=== PATIENT | male | born 1955 | race Caucasian/White ===

== ENCOUNTER 2017-08-05 01:43 | Inpatient (IN) | payer MEDICAID, OTHER ==
[~2017-08-05] VITALS: Ht 185.4 cm; Wt 104.3 kg
[2017-08-05] MEDS ORDERED: HYDROmorphone PF 1 MG/ML DISP.SYRIN IV/SQ PRN (01:45)
[2017-08-05] MEDS ORDERED: 0.9 % SODIUM CHLORIDE 10 ML DISP.SYRIN. IV PRN (01:45)
--- NOTE | 2017-08-05 01:55 | PHYS DOC ---
Past History Past Medical History: Dementia, Diabetes, Hypertension Alcohol Use: None Drug Use: None Adult General Chief Complaint Chief Complaint: penile injury, altered mental status [facility] HPI Patient is a 61-year-old male with a known history of dementia and diabetes who according to the custodial staff was increasing altered and refusing his medications. Patient claims he was sent here because he was complaining of penile pain after he sustained an injury to the head of his penis. He said that the nursing staff would not believe him that his penis was hurting and refused to help get him off the ground when he fell. He has been falling off the bed on multiple occasions. According to staff it is a self-inflicted injury that he keeps falling off the bed to the ground. In an attempt to prevent any bodily harm they're fairly dispensed from the room and placed several mattresses on the floor. Patient does not remember how he sustained an injury to the tip of his penis. He says he is having difficulty urinating, there is considerable pain with range of motion of his legs over the penis and when anything touches the penis. He denies any fevers, chills. The custodial staff let that he has been refusing his medications although he denies that claim. Patient again does not remember how he sustained injury to his penis he does have self-inflicted excoriations on his upper back and shoulders that are not bleeding but are scabbed. Patient sustained multiple bruises on his lower legs bilaterally from repeated falls. Patient denies any sexually transmitted diseases but is having some difficulty urinating with urgency frequency and pain with urination as it exits the penis. Pain is severe patient is reluctant to have anybody examine his penis secondary to 10 out of 10 pain Review of Systems Review of Systems Constitutional: Denies fever or chills [] Eyes: Denies change in visual acuity, redness, or eye pain [] HENT: Denies nasal congestion or sore throat [] Respiratory: Denies cough or shortness of breath [] Cardiovascular: No additional information not addressed in HPI [] GI: Denies abdominal pain, nausea, vomiting, bloody stools or diarrhea [] : Positive for dysuria and pain when urinating since the penis around the glans. Musculoskeletal: Denies back pain or joint pain positive for penile pain[] Integument: Positive for itchy skin rash on his shoulders and upper back. Neurologic: Denies headache, focal weakness or sensory changes [] Endocrine: Denies polyuria or polydipsia [] All other systems were reviewed and found to be within normal limits, except as documented in this note. Physical Exam Physical Exam Other vital signs recorded on a chart at this time patient mildly tachycardic and hypertensive likely secondary to pain Constitutional: Patient is obese somewhat agitated and perseverating on his penile pain. He claims that he does not remember how he injured himself or if anybody else did this to him. HENT: Normocephalic, atraumatic, bilateral external ears normal, oropharynx dry erythema, no oral exudates, nose normal. [] Eyes: PERRLA, EOMI, conjunctiva normal, no discharge. [] Neck: Normal range of motion, no tenderness, supple, no stridor. [] Cardiovascular:Heart rate regular rhythm, no murmur [] Lungs & Thorax: Bilateral breath sounds clear to auscultation [] Abdomen: Bowel sounds normal, soft, no tenderness, no masses, no pulsatile masses. [] Skin: Warm, dry, multiple abrasions on his upper shoulders and back bilaterally with excoriation fernandez from self-inflicted abrasions. Patient has a large contusion and abrasions to the lateral right hip. Patient also has contusions to the penile tip and the glans of the penis with some area of erythema and concerning areas of purulent discharge that may represent early cellulitis there is no active drainage from the penis tip. There is no scrotal edema or soft tissue swelling there is no evidence of erythema or crepitus of the scrotum. There is no abdominal wall pain or erythema Back: Not able to assess as patient is not willing to rollover secondary to pain in his penis. Extremities: Patient has significant abrasions and contusions to the hips bilaterally with some self-inflicted excoriations, there is no obvious deformity. She has brisk capillary refill plus peripheral pulses in the dorsalis pedis bilaterally Neurologic: Alert and oriented X 3, patient moves all limbs spontaneously patient is really noncompliant with instructions Psychologic: Patient seems appropriately oriented and lucid Current Patient Data Lab Results Laboratory Tests Test 08/05/17 01:56 White Blood Count 10.9 x10^3/uL (4.0-11.0) Red Blood Count 4.25 x10^6/uL (4.30-5.70) L Hemoglobin 12.3 g/dL (13.0-17.5) L Hematocrit 36.9 % (39.0-53.0) L Mean Corpuscular Volume 87 fL (79-100) Mean Corpuscular Hemoglobin 29 pg (25-35) Mean Corpuscular Hemoglobin Concent 33 g/dL (31-37) Red Cell Distribution Width 13.0 % (11.5-14.5) Platelet Count 246 x10^3/uL (140-400) Neutrophils (%) (Auto) 76 % (31-73) H Lymphocytes (%) (Auto) 10 % (24-48) L Monocytes (%) (Auto) 11 % (0-9) H Eosinophils (%) (Auto) 3 % (0-3) Basophils (%) (Auto) 1 % (0-3) Neutrophils # (Auto) 8.3 x10^3uL (1.8-7.7) H Lymphocytes # (Auto) 1.0 x10^3/uL (1.0-4.8) Monocytes # (Auto) 1.2 x10^3/uL (0.0-1.1) H Eosinophils # (Auto) 0.3 x10^3/uL (0.0-0.7) Basophils # (Auto) 0.1 x10^3/uL (0.0-0.2) Sodium Level 143 mmol/L (136-145) Potassium Level 4.1 mmol/L (3.5-5.1) Chloride Level 103 mmol/L (98-107) Carbon Dioxide Level 28 mmol/L (21-32) Anion Gap 12 (6-14) Blood Urea Nitrogen 46 mg/dL (8-26) H Creatinine 3.6 mg/dL (0.7-1.3) H Estimated GFR (Cockcroft-Gault) 17.4 Glucose Level 225 mg/dL (70-99) H Lactic Acid Level 3.3 mmol/L (0.4-2.0) H Calcium Level 11.4 mg/dL (8.5-10.1) H Total Bilirubin 0.5 mg/dL (0.2-1.0) Direct Bilirubin 0.1 mg/dL (0.0-0.2) Aspartate Amino Transferase (AST) 15 U/L (15-37) Alanine Aminotransferase (ALT) 18 U/L (16-63) Alkaline Phosphatase 99 U/L (46-116) Creatine Kinase 170 U/L (39-308) Creatine Kinase MB (Mass) 6.4 ng/mL (0.0-3.6) H Creatine Kinase MB Relative Index 3.8 % (0-4) Total Protein 7.9 g/dL (6.4-8.2) Albumin 3.3 g/dL (3.4-5.0) L EKG EKG [] Radiology/Procedures Radiology/Procedures [] Course & Med Decision Making Course & Med Decision Making Pertinent Labs and Imaging studies reviewed. (See chart for details) []Patient's penile tissue looks irritated, bruised and cellulitic at the glans. Patient was very reluctant to have any examination done at the penis at all secondary to pain. There is no lesions on the shaft of the penis or the scrotum. There is tenderness just along the glans with soft tissue swelling, erythema and possible purulent discharge subcutaneously under the tissues. Patient denies any self-inflicted trauma although he does not room of the mechanism he further denies that anybody did this to him as well. Will not let us place a Darby to help facilitate urine output. In the interim I will provide him pain medications and antianxiety medication to help facilitate examination and placement of a Darby. I'm concerned that this patient may have suffered from non-external trauma to his penis with the custodial staff may have attempted to place a Darby in him. There is circumferential circular contusions to the glans of the penis and soft tissue swelling that the patient cannot remember how he sustained the injury. Impression CBC is unremarkable with the exception of some neutrophil predominance which is concerning patient is still not void secondary to the soft tissue swelling of the glans of the penis. Given the extensive soft tissue swelling secondary to the trauma I will not attempt to place a Darby at this time. Patient has voided in the last 12 hours we will just fluid hydrate him and encouraged him to avoid. At this point I will treat his glans issue as a cellulitis given his history of diabetes there is no evidence of Marce's gangrene of the scrotum watch him very carefully for developing cellulitis of the groin. Patient's issues only isolated to the glans of the penis with a soft tissue trauma. But given his history of diabetes we will give him antibiotics watch him very closely with serial lactic acid level CBCs. At this point patient is no scrotal tenderness the tenderness is mildly on the shaft of the penis and the glans of the penis. There is minimal erythema but he will have repeat wound checks and immediately transported to [facility] necessary at this point I believe he is safe to stay here for IV antibiotics and repeat wound checks. She is resting comfortably with IV fluids and pain meds at this point. Patient's lactic acid is 3.3 he'll be given a 30 mL /mg bolus Calculus his weight at 220 pounds based on 6 foot 2 is ideal body weight which turns out to be 100 kg, this will equal proximally 30 mL were program equal 3 L. He's been given 1 L here in the emergency department and 2 additional liters been ordered within the first 6 hours of arrival. Patient given vancomycin and Zosyn to treat his penile cellulitis. Senior Editor note: Jolly Denson Senior Editor called at of the service 3:10 AM Consult called back at 3:10 AM Discussed the case I presented and they agreed with admission. Time of acceptance 3:10 AM Dragon Disclaimer Dragon Disclaimer This electronic medical record was generated, in whole or in part, using a voice recognition dictation system. Departure Departure: Impression: Primary Impression: Penile cellulitis Additional Impressions: Contusion of penis, initial encounter Hyperglycemia Elevated lactic acid level Disposition: ADMITTED INPATIENT Admitting Physician: Nakia Denson Condition: STABLE Referrals: PCP,NO (PCP) Problem Qualifiers STACY PETER MD Aug 05, 2017 01:55
[2017-08-05 02:17] LABS: BASO # 0.1 x10^3/uL (0.0-0.2); BASO % 1 % (0-3); EOS # 0.3 x10^3/uL (0.0-0.7); EOS % 3 % (0-3); HEMATOCRIT 36.9 % (39.0-53.0); HEMOGLOBIN 12.3 g/dL (13.0-17.5); LYMPH % 10 % (24-48); MEAN CORPUSCULAR HEMOGLOBIN 29 pg (25-35); MEAN CORPUSCULAR HGB CONC 33 g/dL (31-37); MEAN CORPUSCULAR VOLUME 87 fL (79-100); MONO # 1.2 x10^3/uL (0.0-1.1); MONO % 11 % (0-9); NEUT # 8.3 x10^3uL (1.8-7.7); NEUT % 76 % (31-73); PLATELET COUNT 246 x10^3/uL (140-400); RED BLOOD COUNT 4.25 x10^6/uL (4.30-5.70); WHITE BLOOD COUNT 10.9 x10^3/uL (4.0-11.0)
[2017-08-05] MEDS ORDERED: ONDANSETRON PF 4 MG/2 ML VIAL. IV ONE (02:30)
[2017-08-05] MEDS ORDERED: IV NORMAL SALINE 1,000ML 1,000 ML IV SCH (02:30)
[2017-08-05] MEDS ORDERED: LORazepam 2 MG/ML VIAL IV ONE (02:30)
[2017-08-05 02:40] LABS: ALBUMIN 3.3 g/dL (3.4-5.0); CALCIUM 11.4 mg/dL (8.5-10.1); CREATININE 3.6 mg/dL (0.7-1.3); DIRECT BILIRUBIN 0.1 mg/dL (0.0-0.2); GFR 17.4; POTASSIUM 4.1 mmol/L (3.5-5.1); TOTAL BILIRUBIN 0.5 mg/dL (0.2-1.0); TOTAL PROTEIN 7.9 g/dL (6.4-8.2)
[2017-08-05] MEDS ORDERED: HYDROmorphone PF 1 MG/ML DISP.SYRIN IV PRN (03:15)
[2017-08-05] MEDS ORDERED: ONDANSETRON PF 4 MG/2 ML VIAL. IV PRN (03:15)
[2017-08-05] MEDS ORDERED: VANCOMYCIN 1 GM in IV NORMAL SALINE 250ML 250 ML IV ONE (03:15)
[2017-08-05] MEDS: IV NORMAL SALINE 1,000ML 1,000 ML IV SCH ×4 (03:25→07:30)
[2017-08-05] MEDS ORDERED: PIPERACILLIN/TAZOBACTAM 4.5 GM in IV NORMAL SALINE 50ML 50 ML IV ONE (03:30)
[2017-08-05] MEDS ORDERED: VANCOMYCIN 2 GM in IV NORMAL SALINE 500ML 500 ML IV ONE (03:30)
[2017-08-05] MEDS ORDERED: IV NORMAL SALINE 50ML 50 ML ONE (04:23)
[2017-08-05] MEDS ORDERED: IV NORMAL SALINE 500ML 500 ML ONE (04:24)
[2017-08-05] MEDS ORDERED: PIPERACILLIN/TAZOBACTAM 4.5 GM VIAL IV ONE (04:24)
[2017-08-05] MEDS ORDERED: VANCOMYCIN 1 GM VIAL. ONE (04:24)
[2017-08-05 05:42] VITALS: BP 185/91
[2017-08-05] MEDS ORDERED: ATOR20TA58 PO (06:30)
[2017-08-05] MEDS ORDERED: LORA-434 PO (06:30)
[2017-08-05] MEDS ORDERED: CYAN100072 PO (06:31)
[2017-08-05] MEDS ORDERED: CLON0.1T PO (06:32)
[2017-08-05] MEDS ORDERED: BISA10SU2 RC ×2 (06:32→10:53)
[2017-08-05] MEDS ORDERED: BISA5TAB4 PO (06:32)
[2017-08-05] MEDS ORDERED: DOCU-109 PO (06:33)
[2017-08-05] MEDS ORDERED: VALS320T2 PO (06:33)
[2017-08-05] MEDS ORDERED: NA P133E2 RC (06:34)
[2017-08-05] MEDS ORDERED: ALEN70TA3 PO (06:34)
[2017-08-05] MEDS ORDERED: IBUP800T19 PO (06:35)
[2017-08-05] MEDS ORDERED: INSU100I13 SQ (06:36)
[2017-08-05] MEDS ORDERED: LEVO25TA4 PO (06:36)
[2017-08-05] MEDS ORDERED: DRON5CAP2 PO (06:37)
[2017-08-05] MEDS ORDERED: GABA-587 PO (06:38)
[2017-08-05] MEDS ORDERED: GABA800T2 PO (06:38)
[2017-08-05] MEDS ORDERED: INSU100I17 SQ ×2 (06:39→10:53)
[2017-08-05] MEDS ORDERED: CINA60TA PO (06:41)
[2017-08-05] MEDS ORDERED: CHOL2000 PO (06:41)
[2017-08-05] MEDS ORDERED: ONDA4TAB10 SL (06:42)
[2017-08-05] MEDS ORDERED: ONDA4TAB7 PO (10:53)
[2017-08-05 11:57] VITALS: BP 207/108
[2017-08-05] MEDS ORDERED: BISACODYL 10 MG SUPP.RECT RC PRN (12:00)
[2017-08-05] MEDS ORDERED: VANCOMYCIN PER PHARMACY MC PRN (12:00)
[2017-08-05] MEDS ORDERED: LORazepam 1 MG TABLET PO PRN (12:00)
[2017-08-05] MEDS ORDERED: BISACODYL TAB 5 MG TABLET.DR. PO PRN (12:00)
[2017-08-05] MEDS ORDERED: PIPERACILLIN/TAZOBACTAM 4.5 GM in IV NORMAL SALINE 50ML 50 ML IV SCH (12:00)
[2017-08-05] MEDS ORDERED: ONDANSETRON ODT 4 MG TAB.RAPDIS PO PRN ×2 (12:00→13:45)
[2017-08-05] MEDS ORDERED: PIPERACILLIN/TAZOBACTAM 2.25 GM in IV NORMAL SALINE 50ML 50 ML IV SCH (12:15)
[2017-08-05] MEDS ORDERED: CHOLECALCIFEROL (VITAMIN D3) 1,000 UNIT TABLET PO SCH (12:15)
[2017-08-05] MEDS ORDERED: cloNIDine HCL 0.1 MG TABLET PO SCH (12:15)
[2017-08-05] MEDS ORDERED: CYANOCOBALAMIN (VITAMIN B-12) 1,000 MCG TABLET. PO SCH (12:15)
[2017-08-05] MEDS ORDERED: LOSARTAN 50 MG TABLET. PO SCH (12:15)
[2017-08-05] MEDS ORDERED: DOCUSATE SODIUM 100 MG CAPSULE PO SCH (12:15)
[2017-08-05] MEDS ORDERED: ONDANSETRON ODT 4 MG TAB.RAPDIS PO SCH (12:30)
[2017-08-05] MEDS ORDERED: GABAPENTIN 400 MG CAPSULE. PO SCH (13:00)
[2017-08-05] MEDS ORDERED: DEXTROSE 50% 25 GM / 50ML DISP.SYRIN. IV PRN (13:15)
--- NOTE | 2017-08-05 14:26 | PDOC3 ---
Discharge Summary Visit Information Date of Admission: Aug 05, 2017 Date of Discharge: Aug 05, 2017 Final Diagnosis Problems Medical Problems: (1) Contusion of penis, initial encounter Status: Acute (2) Elevated lactic acid level Status: Acute (3) Hyperglycemia Status: Acute (4) Penile cellulitis Status: Als ALS TOBACCO USE DISORDER HISTORY OF METH USE IMPAIRED MOBILITY Problems: Brief Hospital Course Allergies Allergies Coded Allergies Type Severity Reaction Last Updated Verified No Known Drug Allergies 08/05/17 No Vital Signs Vital Signs Date Time Temp Pulse Resp B/P (MAP) Pulse Ox O2 Delivery O2 Flow Rate FiO2 08/05/17 13:52 100 207/108 08/05/17 11:57 98.0 20 96 Room Air 08/05/17 08:00 2.0 Lab Results Laboratory Tests Test 08/05/17 01:56 08/05/17 05:25 08/05/17 07:43 08/05/17 11:42 White Blood Count 10.9 x10^3/uL (4.0-11.0) Red Blood Count 4.25 x10^6/uL (4.30-5.70) Hemoglobin 12.3 g/dL (13.0-17.5) Hematocrit 36.9 % (39.0-53.0) Mean Corpuscular Volume 87 fL (79-100) Mean Corpuscular Hemoglobin 29 pg (25-35) Mean Corpuscular Hemoglobin Concent 33 g/dL (31-37) Red Cell Distribution Width 13.0 % (11.5-14.5) Platelet Count 246 x10^3/uL (140-400) Neutrophils (%) (Auto) 76 % (31-73) Lymphocytes (%) (Auto) 10 % (24-48) Monocytes (%) (Auto) 11 % (0-9) Eosinophils (%) (Auto) 3 % (0-3) Basophils (%) (Auto) 1 % (0-3) Neutrophils # (Auto) 8.3 x10^3uL (1.8-7.7) Lymphocytes # (Auto) 1.0 x10^3/uL (1.0-4.8) Monocytes # (Auto) 1.2 x10^3/uL (0.0-1.1) Eosinophils # (Auto) 0.3 x10^3/uL (0.0-0.7) Basophils # (Auto) 0.1 x10^3/uL (0.0-0.2) Sodium Level 143 mmol/L (136-145) Potassium Level 4.1 mmol/L (3.5-5.1) Chloride Level 103 mmol/L (98-107) Carbon Dioxide Level 28 mmol/L (21-32) Anion Gap 12 (6-14) Blood Urea Nitrogen 46 mg/dL (8-26) Creatinine 3.6 mg/dL (0.7-1.3) Estimated GFR (Cockcroft-Gault) 17.4 Glucose Level 225 mg/dL (70-99) Lactic Acid Level 3.3 mmol/L (0.4-2.0) 1.8 mmol/L (0.4-2.0) Calcium Level 11.4 mg/dL (8.5-10.1) Total Bilirubin 0.5 mg/dL (0.2-1.0) Direct Bilirubin 0.1 mg/dL (0.0-0.2) Aspartate Amino Transf (AST/SGOT) 15 U/L (15-37) Alanine Aminotransferase (ALT/SGPT) 18 U/L (16-63) Alkaline Phosphatase 99 U/L (46-116) Creatine Kinase 170 U/L (39-308) Creatine Kinase MB (Mass) 6.4 ng/mL (0.0-3.6) Creatine Kinase MB Relative Index 3.8 % (0-4) Total Protein 7.9 g/dL (6.4-8.2) Albumin 3.3 g/dL (3.4-5.0) Glucose (Fingerstick) 149 mg/dL (70-99) 177 mg/dL (70-99) Brief Hospital Course Mr. Molina is a 61 old [sex] who presented with [ ] Past History Past Medical History: Dementia, Diabetes, Hypertension Alcohol Use: None Drug Use: None Adult General Chief Complaint Chief Complaint: penile injury, altered mental status HPI HPI Patient is a 61-year-old male with a known history of dementia and diabetes who according to the half-way staff was increasing altered and refusing his medications. Patient claims he was sent here because he was complaining of penile pain after he sustained an injury to the head of his penis. He said that the nursing staff would not believe him that his penis was hurting and refused to help get him off the ground when he fell. He has been falling off the bed on multiple occasions. According to staff it is a self-inflicted injury that he keeps falling off the bed to the ground. In an attempt to prevent any bodily harm they're fairly dispensed from the room and placed several mattresses on the floor. Patient does not remember how he sustained an injury to the tip of his penis. He says he is having difficulty urinating, there is considerable pain with range of motion of his legs over the penis and when anything touches the penis. He denies any fevers, chills. The half-way staff let that he has been refusing his medications although he denies that claim. Patient again does not remember how he sustained injury to his penis he does have self-inflicted excoriations on his upper back and shoulders that are not bleeding but are scabbed. Patient sustained multiple bruises on his lower legs bilaterally from repeated falls. Patient denies any sexually transmitted diseases but is having some difficulty urinating with urgency frequency and pain with urination as it exits the penis. Pain is severe patient is reluctant to have anybody examine his penis secondary to 10 out of 10 pain Was admitted for cellulitis of the penis. POOR HISTORIAN, DOES NOT KNOW THE EXACT AMOUNT OF TIME THAT HIS PENIS HAS BEEN BOTHERING HIM. SOCIAL HISTORY: [place] [facility] [place] WAS [facility] AT THE [facility] FOR METHAMPHETAMINE PRIOR TO THAT. STILL IS ON PROBATION. SMOKES BUT IS NOT ALLOWED TO DRINK PER HIS PROBATION Review of Systems Review of Systems Constitutional: Denies fever or chills [] Eyes: Denies change in visual acuity, redness, or eye pain [] HENT: Denies nasal congestion or sore throat [] Respiratory: Denies cough or shortness of breath [] Cardiovascular: No additional information not addressed in HPI [] GI: Denies abdominal pain, nausea, vomiting, bloody stools or diarrhea [] : Positive for dysuria and pain when urinating since the penis around the glans., pain and swelling around the penis. denies having sex for the last 10 years Musculoskeletal: Denies back pain or joint pain positive for penile pain[] Integument: Positive for itchy skin rash on his shoulders and upper back. Neurologic: Denies headache, focal weakness or sensory changes [] Endocrine: Denies polyuria or polydipsia [] All other systems were reviewed and found to be within normal limits, except as documented in this note. Physical Exam Physical Exam Other vital signs recorded on a chart at this time patient mildly tachycardic and hypertensive likely secondary to pain Constitutional: Patient is obese somewhat agitated and perseverating on his penile pain. He claims that he does not remember how he injured himself or if anybody else did this to him. HENT: Normocephalic, atraumatic, bilateral external ears normal, oropharynx dry erythema, no oral exudates, nose normal. [, edentulous Eyes: PERRLA, EOMI, conjunctiva normal, no discharge. [] Neck: Normal range of motion, Cardiovascular:Heart rate regular rhythm, no murmur [] Lungs & Thorax: Bilateral breath sounds clear to auscultation [] Abdomen: Bowel sounds normal, soft, no tenderness, no masses, no pulsatile masses. [] Skin: Warm, dry, multiple abrasions on his upper shoulders and back bilaterally with excoriation fernandez from self-inflicted abrasions. Patient has a large contusion and abrasions to the lateral right hip. Patient also has contusions to the penile tip and the glans of the penis with some area of erythema and concerning areas of purulent discharge that may represent early cellulitis there is no active drainage from the penis tip. There is no scrotal edema or soft tissue swelling there is no evidence of erythema or crepitus of the scrotum. There is no abdominal wall pain or erythema Multiple tatoos with nazi swastickers present Back: Not able to assess as patient is not willing to rollover secondary to pain in his penis. Extremities: Patient has significant abrasions and contusions to the hips bilaterally with some self-inflicted excoriations, there is no obvious deformity. She has brisk capillary refill plus peripheral pulses in the dorsalis pedis bilaterally, bilateral hamild hand contractures Neurologic: Alert and oriented X 3, patient moves all limbs spontaneously patient is really noncompliant with instructions Psychologic: Patient very agitated and prone to swearing, lying naked and denied my request to cover himself Discharge Information Condition at Discharge: Comment (IN NEED OF A UROLOGIST) Disposition/Orders: D/C to Another Facility Dischare Medications Current Medications Lorazepam (Ativan) 1 mg 1X ONCE IV Last administered on 08/05/17at 02:23; Start 08/05/17 at 02:30; Stop 08/05/17 at 02:31; Status DC Hydromorphone HCl (Dilaudid) 1 mg PRN Q15MIN PRN IV/SQ PAIN GREATER THAN 3/10 Last administered on 08/05/17at 02:24; Start 08/05/17 at 01:45; Stop 08/06/17 at 01:44 Sodium Chloride 1,000 ml @ 1,000 mls/hr Q1H IV Last administered on 08/05/17at 02:23; Start 08/05/17 at 02:30; Stop 08/05/17 at 03:29; Status DC Sodium Chloride (Normal Saline Flush) 10 ml QSHIFT PRN IV AFTER MEDS AND BLOOD DRAWS; Start 08/05/17 at 01:45 Ondansetron HCl (Zofran) 4 mg 1X ONCE IV Last administered on 08/05/17at 02:23 ; Start 08/05/17 at 02:30; Stop 08/05/17 at 02:31; Status DC Piperacillin Sod/ Tazobactam Sod 4.5 gm/Sodium Chloride 50 ml @ 100 mls/hr 1X ONCE IV Last administered on 08/05/17at 04:19; Start 08/05/17 at 03:30; Stop at 03:59; Status DC Vancomycin HCl 1 gm/Sodium Chloride 250 ml @ 250 mls/hr 1X ONCE IV ; Start at 03:15; Stop 08/05/17 at 04:14; Status UNV Vancomycin HCl 2 gm/Sodium Chloride 500 ml @ 250 mls/hr 1X ONCE IV Last administered on 08/05/17at 03:30; Start 08/05/17 at 03:30; Stop 08/05/17 at 05:29 ; Status DC Ondansetron HCl (Zofran) 4 mg PRN Q4HRS PRN IV NAUSEA/VOMITING; Start 08/05/17 at 03:15; Stop 08/06/17 at 03:14 Fentanyl Citrate (Fentanyl 2ml Vial) 50 mcg PRN Q2HR PRN IV SEVERE PAIN; Start 08/05/17 at 03:15; Stop 08/06/17 at 03:14 Sodium Chloride 1,000 ml @ 125 mls/hr Q8H IV Last administered on 08/05/17at 07 :30; Start 08/05/17 at 03:05; Stop 08/06/17 at 03:04 Hydromorphone HCl (Dilaudid) 1 mg PRN Q2HR PRN IV SEVERE PAIN; Start 08/05/17 at 03:15; Stop 08/06/17 at 03:14 Sodium Chloride 1,000 ml @ 1,000 mls/hr Q1H IV Last administered on 08/05/17at 06:12; Start 08/05/17 at 03:15; Stop 08/05/17 at 05:38; Status DC Sodium Chloride 50 ml @ As Directed STK-MED ONCE .ROUTE ; Start 08/05/17 at 04: 23; Stop 08/05/17 at 04:24; Status DC Sodium Chloride 500 ml @ As Directed STK-MED ONCE .ROUTE ; Start 08/05/17 at 04 :24; Stop 08/05/17 at 04:25; Status DC Vancomycin HCl (Vancomycin) 1 gm STK-MED ONCE .ROUTE ; Start 08/05/17 at 04:24; Stop 08/05/17 at 04:25; Status DC Piperacillin Sod/ Tazobactam Sod (Zosyn) 4.5 gm STK-MED ONCE IV ; Start at 04:24; Stop 08/05/17 at 04:25; Status DC Atorvastatin Calcium (Lipitor) 20 mg HS PO ; Start 08/05/17 at 21:00 Bisacodyl (Dulcolax Tab) 5 mg PRN DAILY PRN PO CONSTIPATION; Start 08/05/17 at 12:00 Bisacodyl (Dulcolax Supp) 10 mg PRN DAILY PRN RC CONSTIPATION; Start 08/05/17 at 12:00 Bisacodyl (Dulcolax Supp) 10 mg QMWF RC ; Start 08/05/17 at 16:00 Clonidine HCl (Catapres) 0.1 mg BID PO Last administered on 08/05/17at 13:52; Start 08/05/17 at 12:15 Cyanocobalamin (Vitamin B-12) 1,000 mcg DAILY PO Last administered on at 13:51; Start 08/05/17 at 12:15 Docusate Sodium (Colace) 200 mg DAILY PO Last administered on 08/05/17at 13:52; Start 08/05/17 at 12:15 Gabapentin (Neurontin) 400 mg QID PO Last administered on 08/05/17at 13:51; Start 08/05/17 at 13:00 Ibuprofen (Motrin) 800 mg BID PO ; Start 08/05/17 at 21:00 Insulin Aspart (NovoLOG) 1 units BIDBFRMEAL SQ ; Start 08/05/17 at 16:30; Stop 08/05/17 at 16:30; Status DC Insulin Aspart (NovoLOG) 5 units TIDAC SQ ; Start 08/05/17 at 16:30 Insulin Glargine (Lantus) 4 units BID SQ ; Start 08/05/17 at 21:00 Levothyroxine Sodium (Synthroid) 25 mcg DAILY06 PO ; Start 08/06/17 at 06:00 Lorazepam (Ativan) 1 mg PRN Q4HRS PRN PO ANXIETY / AGITATION; Start 08/05/17 at 12:00 Ondansetron HCl (Zofran Odt) 4 mg PRN Q8HRS PRN PO NAUSEA/VOMITING; Start 08/05 at 12:00; Stop 08/05/17 at 13:45; Status DC Non-Formulary Medication 1 tab QM PO ; Start 08/05/17 at 16:00; Stop 08/05/17 at 16:00; Status DC Vitamin D (Vitamin D3) 1,000 unit DAILY PO Last administered on 08/05/17at 13:51 ; Start 08/05/17 at 12:15 Cinacalcet (Sensipar) 60 mg BID PO ; Start 08/05/17 at 21:00 Dronabinol (Marinol) 5 mg BID PO ; Start 08/05/17 at 21:00 Ondansetron HCl (Zofran Odt) 4 mg Q6HRS PO ; Start 08/05/17 at 12:30; Stop 08/05 at 13:38; Status DC Non-Formulary Medication 1 tab DAILY PO ; Start 08/06/17 at 09:00; Stop at 09:00; Status DC Piperacillin Sod/ Tazobactam Sod 4.5 gm/Sodium Chloride 50 ml @ 100 mls/hr Q6HRS IV ; Start 08/05/17 at 12:00; Stop 08/05/17 at 12:05; Status DC Vancomycin HCl (Vanco Per Pharmacy) 1 each PRN DAILY PRN MC SEE COMMENTS Last administered on 08/05/17at 12:25; Start 08/05/17 at 12:00 Piperacillin Sod/ Tazobactam Sod 2.25 gm/Sodium Chloride 50 ml @ 100 mls/hr Q6HRS IV Last administered on 08/05/17at 13:53; Start 08/05/17 at 12:15 Losartan Potassium (Cozaar) 100 mg DAILY PO Last administered on 08/05/17at 13: 52; Start 08/05/17 at 12:15 Vancomycin HCl 1.5 gm/Sodium Chloride 500 ml @ 250 mls/hr Q24H IV ; Start 08/06 at 03:00 Vancomycin HCl (Vancomycin Trough Level) 1 each 1X ONCE MC ; Start 08/07/17 at 02:30; Stop 08/07/17 at 02:31 Lactobacillus Rhamnosus (Culturelle) 1 cap BID PO ; Start 08/05/17 at 21:00 Insulin Aspart (NovoLOG) BIDBFRMEAL SQ ; Start 08/05/17 at 16:30 Dextrose 12.5 gm PRN Q15MIN PRN IV SEE COMMENTS; Start 08/05/17 at 13:15 Ondansetron HCl (Zofran Odt) 4 mg PRN Q6HRS PRN PO NAUSEA; Start 08/05/17 at 13 :45 Active Scripts Active Reported Zofran (Ondansetron Hcl) 4 Mg Tablet 1 Tab PO Q6HRS Novolog Flexpen (Insulin Aspart) 100 Unit/1 Ml Insuln.pen 1 Unit SQ BIDBFRMEAL Bisacodyl 10 Mg Supp.rect 10 Mg RC PRN DAILY PRN Zofran Odt (Ondansetron) 4 Mg Tab.rapdis 1 Tab SL Q8HRS PRN Vitamin D (Cholecalciferol (Vitamin D3)) 2,000 Unit Capsule 1 Cap PO DAILY Sensipar (Cinacalcet Hcl) 60 Mg Tablet 60 Mg PO BID Novolog Flexpen (Insulin Aspart) 100 Unit/1 Ml Insuln.pen 5 Unit SQ TIDAC Neurontin (Gabapentin) 400 Mg Capsule 400 Mg PO QID Dronabinol 5 Mg Capsule 5 Mg PO BID Levothyroxine Sodium 25 Mcg Tablet 1 Tab PO DAILY06 Lantus Solostar (Insulin Glargine,Hum.rec.anlog) 100 Unit/1 Ml Insuln.pen 4 Unit SQ BID Ibuprofen 800 Mg Tablet 1 Tab PO BID Fosamax (Alendronate Sodium) 70 Mg Tablet 1 Tab PO QM Fleet Enema (Na Phos,M-B/Na Phos,Di-Ba) 133 Ml Enema 1 Each RC DAILY PRN Diovan (Valsartan) 320 Mg Tablet 1 Tab PO DAILY Colace (Docusate Sodium) 100 Mg Capsule 200 Mg PO DAILY Clonidine Hcl 0.1 Mg Tablet 0.1 Mg PO BID Bisacodyl 10 Mg Supp.rect 10 Mg RC QMWF Bisacodyl 5 Mg Tablet.dr 5 Mg PO PRN DAILY PRN B-12 (Cyanocobalamin (Vitamin B-12)) 1,000 Mcg Tablet 1,000 Mcg PO DAILY Atorvastatin Calcium 20 Mg Tablet 1 Tab PO HS Ativan (Lorazepam) 1 Mg Tablet 1 Mg PO Q4HRS PRN Patient Instructions Patient Instuctions DISCHARGE TO [facility]. NIA CASTELLON DO Aug 05, 2017 14:26
[2017-08-05 14:55] VITALS: BP 174/91
[2017-08-05] MEDS ORDERED: BISACODYL 10 MG SUPP.RECT RC SCH (16:00)
[2017-08-05] MEDS ORDERED: NON FORMULARY ITEM (Alendronate Sodium (Fosamax) 1 TAB) PO SCH (16:00)
[2017-08-05] MEDS ORDERED: INSULIN ASPART 300 UNITS/3 ML INSULN.PEN SQ SCH ×3 (16:30)
[2017-08-05] MEDS ORDERED: ATORVASTATIN CALCIUM 20 MG TABLET PO SCH (21:00)
[2017-08-05] MEDS ORDERED: CINACALCET HCL 30 MG TABLET PO SCH (21:00)
[2017-08-05] MEDS ORDERED: INSULIN GLARGINE 300 UNITS/3 ML INSULN.PEN. SQ SCH (21:00)
[2017-08-05] MEDS ORDERED: DRONABINOL 2.5 MG CAPSULE PO SCH (21:00)
[2017-08-05] MEDS ORDERED: IBUPROFEN 800 MG TABLET. PO SCH (21:00)
[2017-08-05] MEDS ORDERED: LACTOBACILLUS RHAMNOSUS GG 1 CAPSULE. PO SCH (21:00)
[2017-08-06] MEDS ORDERED: VANCOMYCIN 1.5 GM in IV NORMAL SALINE 500ML 500 ML IV SCH (03:00)
[2017-08-06] MEDS ORDERED: LEVOTHYROXINE 25 MCG TABLET. PO SCH (06:00)
[2017-08-06] MEDS ORDERED: NON FORMULARY ITEM (Valsartan (Diovan) 1 TAB) PO SCH (09:00)
== END 2017-08-05 15:20 | disposition home or self-care (01) | DRG 728 ==
LOC: ER 01:43 → 1 SOUTH 04:05
PROVIDERS: ADMIT Internal Medicine; ATTEND Internal Medicine
DX: N48.22 Cellulitis of corpus cavernosum and penis (principal); E11.65 Type 2 diabetes mellitus with hyperglycemia; F03.90 Unspecified dementia, unspecified severity, without behavioral disturbance, psychotic disturbance, mood disturbance, and anxiety; S30.21XA Contusion of penis, initial encounter; W06.XXXA Fall from bed, initial encounter; E66.9 Obesity, unspecified; I10 Essential (primary) hypertension; R29.6 Repeated falls; S80.12XA Contusion of left lower leg, initial encounter; S80.11XA Contusion of right lower leg, initial encounter; R39.15 Urgency of urination; F15.90 Other stimulant use, unspecified, uncomplicated; M24.542 Contracture, left hand; M24.541 Contracture, right hand; F41.9 Anxiety disorder, unspecified; Z79.4 Long term (current) use of insulin; Z79.899 Other long term (current) drug therapy; Z72.0 Tobacco use; Z91.19 Patient's noncompliance with other medical treatment and regimen; Y93.89 Activity, other specified; Y92.89 Other specified places as the place of occurrence of the external cause; Y99.8 Other external cause status; Z68.30 Body mass index [BMI] 30.0-30.9, adult
CPT/HCPCS: 36415; 80048; 80076; 82553; 82947; 83605; 85025; 87040; 87641; 96361; 96365; 96375; J1170; J1815; J2060; J2405; J2543; J3370; J7040; 99285-25; J7030

== ENCOUNTER 2017-12-04 19:53 | Observation (INO) | payer OTHER ==
[~2017-12-04] VITALS: Ht 188 cm; Wt 99.9 kg
[~2017-12-04 19:53] MED LIST: ALEN70TA3 PO; ATOR20TA58 PO; BISA10SU2 RC; BISA5TAB4 PO; CHOL2000 PO; CINA60TA PO; CLON0.1T PO; CYAN100072 PO; DOCU-109 PO; DRON5CAP2 PO; GABA-587 PO; GABA800T2 PO; IBUP800T19 PO; INSU100I13 SQ; INSU100I17 SQ; LEVO25TA4 PO; LORA-254 PO; NA P133E2 RC; ONDA4TAB10 SL; ONDA4TAB7 PO; VALS320T2 PO
--- NOTE | 2017-12-04 20:04 | ED.ADGEN ---
Past History Past Medical History: Anxiety, Dementia, Depression, Diabetes, Hypertension, UTI, Other Past Surgical History: Other Smoking: Cigarettes Alcohol Use: None Drug Use: None Adult General Chief Complaint Chief Complaint ".. I don't need any of this shit...I just want to go home to [place]... ."'. Instead they send me to the [facility] psych arriola...." " Fuck ..I am going to soon any from my [facility] ALS..." HPI HPI Patient is a 62 year old male who presents with hx of mental status change, pt. also refusing care, assaultive, uncooperative in his care and verbal abusing staff. Pt refusing meds, will not re-direct, general disruptive behavior the last three weeks.. Pt. has hx. of major depressive disorder, poor impulse control, anti social disorder, oppositional defiance disorder, HTN, muscle wasting, DM, Dysthymic, dysphagia, ALS and hx of urinary retention with over flow incontinence. Pt. is a transfer from [facility]- where he has been a resident since 02/15/2017. Pt. follows with Dr. Santillan. Pt. has been accepted to [facility] Dr. Chapman. Pt. sent to ED for medical clearance prior to placement on [facility]. Review of Systems Review of Systems Pt. poor historian- very angry.- Give limited review of symptoms Family History Family History Not currently available Current Medications Current Medications See nursing for snf medications Allergies Allergies Allergies Coded Allergies Type Severity Reaction Last Updated Verified No Known Drug Allergies 08/05/17 No Physical Exam Physical Exam Constitutional:In acute emotional distress, angry, non-toxic appearance. [] HENT: Normocephalic, atraumatic, bilateral external ears normal, oropharynx moist, no oral exudates, nose normal. [] Eyes: PERRLA, EOMI, conjunctiva normal, no discharge. [] Neck: Normal range of motion, no tenderness, supple, no stridor. [] Cardiovascular: Tachycardia Heart rate regular rhythm, no murmur []PIM to the left Lungs & Thorax: Bilateral breath sounds equal at apex with scattered wheezes and basilar crackles on auscultation [] Abdomen: Bowel sounds normal, soft, no tenderness, distended, no masses, no pulsatile masses. [] Suprapubic scar from recent suprapubic catheter- port is scarred shut Skin: Warm, dry, no erythema, no rash. Poor turgor Back: No tenderness, no CVA tenderness. [] Sacral erythema. Extremities: Generalized muscle tenderness, no cyanosis, no clubbing, ROM limited because of generalized muscle wasting and neuromuscular weakness, ankle edema. [] Arthritic changes. Neurologic: Alert and oriented X 3, decreased generalize muscular strength.. decrease plantar sensation, , no gross focal deficits from his baseline per pt. Pt. needs assistance in turning or even sitting up. Psychologic: Affect angry, judgement normal, mood depressed. Current Patient Data Vital Signs Vital Signs Date Time Temp Pulse Resp B/P (MAP) Pulse Ox O2 Delivery O2 Flow Rate FiO2 12/04/17 20:21 98.0 94 18 94 Room Air Lab Results Laboratory Tests Test 12/04/17 20:16 White Blood Count 7.8 x10^3/uL (4.0-11.0) Red Blood Count 3.85 x10^6/uL (4.30-5.70) L Hemoglobin 10.6 g/dL (13.0-17.5) L Hematocrit 32.3 % (39.0-53.0) L Mean Corpuscular Volume 84 fL (79-100) Mean Corpuscular Hemoglobin 28 pg (25-35) Mean Corpuscular Hemoglobin Concent 33 g/dL (31-37) Red Cell Distribution Width 14.7 % (11.5-14.5) H Platelet Count 296 x10^3/uL (140-400) Neutrophils (%) (Auto) 55 % (31-73) Lymphocytes (%) (Auto) 24 % (24-48) Monocytes (%) (Auto) 12 % (0-9) H Eosinophils (%) (Auto) 8 % (0-3) H Basophils (%) (Auto) 1 % (0-3) Neutrophils # (Auto) 4.3 x10^3uL (1.8-7.7) Lymphocytes # (Auto) 1.9 x10^3/uL (1.0-4.8) Monocytes # (Auto) 0.9 x10^3/uL (0.0-1.1) Eosinophils # (Auto) 0.6 x10^3/uL (0.0-0.7) Basophils # (Auto) 0.1 x10^3/uL (0.0-0.2) Erythrocyte Sedimentation Rate 57 (0-15) H Prothrombin Time 10.4 SEC (9.4-11.4) Prothrombin Time INR 1.0 (0.9-1.1) PTT 23 SEC (23-33) Sodium Level 137 mmol/L (136-145) Potassium Level 3.5 mmol/L (3.5-5.1) Chloride Level 100 mmol/L (98-107) Carbon Dioxide Level 21 mmol/L (21-32) Anion Gap 16 (6-14) H Blood Urea Nitrogen 72 mg/dL (8-26) H Creatinine 4.1 mg/dL (0.7-1.3) H Estimated GFR (Cockcroft-Gault) 14.9 Glucose Level 234 mg/dL (70-99) H Calcium Level 11.4 mg/dL (8.5-10.1) H Magnesium Level 2.0 mg/dL (1.8-2.4) Creatine Kinase 113 U/L (39-308) Creatine Kinase MB (Mass) 5.7 ng/mL (0.0-3.6) H Creatine Kinase MB Relative Index 5.0 % (0-4) H Troponin I Quantitative < 0.017 ng/mL (0-0.055) [id number]-Type Natriuretic Peptide 136 pg/mL (0-124) H EKG EKG My interpretation of EKG shows a sinus rhythm at 91 bpm. There is left axis deviation. There is fascicular block. No findings acute STEMI with contralateral changes.[] Radiology/Procedures Radiology/Procedures My interpretation of chest x-ray shows COPD changes. Does have scattered granulomas. There is a cluster granulomas in right lower lung soni. Degenerative joint changes. Cardiomegaly. [] My interpretation CT of head shows no shift, mass, edema, bleed, or fracture. Does have findings of small vessel changes and atrophy. No acute fx , djd. Course & Med Decision Making Course & Med Decision Making Pertinent Labs and Imaging studies reviewed. (See chart for details) Discussed presentation, testing and tx. plan with Dr. Denson- Med consult for [facility]. advised admit to [address] [place] [address] Denson- Primary. Concern for obstructive uropathy- Bladder scan for urinary retention pending at time of admit. ( Pt. refusing urinary cath for urinary retention.) [] Final Impression Final Impression 1. Mental Status change 2. Personality disorder 3. Decondition 4. DJD 5. Affective Mood Disorder 6. Amyotrophic Lateral Sclerosis 7. Dysphagia 8. Muscle wasting 9. Neuromuscular Dysfunction Bladder 10.DM Neuropathy 11.Bilateral Knee -Chronic Pain 12.HTN 13.Antisocial Disorder 14. Verbal Abusing Staff 15. UTI 16. Anemia 17. Acute on Chronic Renal Failure 18. Suspect Urinary Retention ( Loss Supra Pubic Cath)- 19, BUN and creatinine (72/4.1) 20. Diabetes-glucose 234 Dragon Disclaimer Dragon Disclaimer This electronic medical record was generated, in whole or in part, using a voice recognition dictation system. RA BROWN MD Dec 04, 2017 20:04
[2017-12-04 20:47] LABS: BASO # 0.1 x10^3/uL (0.0-0.2); BASO % 1 % (0-3); EOS # 0.6 x10^3/uL (0.0-0.7); EOS % 8 % (0-3); HEMATOCRIT 32.3 % (39.0-53.0); HEMOGLOBIN 10.6 g/dL (13.0-17.5); LYMPH # 1.9 x10^3/uL (1.0-4.8); LYMPH % 24 % (24-48); MEAN CORPUSCULAR HEMOGLOBIN 28 pg (25-35); MEAN CORPUSCULAR HGB CONC 33 g/dL (31-37); MEAN CORPUSCULAR VOLUME 84 fL (79-100); MONO # 0.9 x10^3/uL (0.0-1.1); MONO % 12 % (0-9); NEUT # 4.3 x10^3uL (1.8-7.7); NEUT % 55 % (31-73); PLATELET COUNT 296 x10^3/uL (140-400); RED BLOOD COUNT 3.85 x10^6/uL (4.30-5.70); RED CELL DISTRIBUTION WIDTH 14.7 % (11.5-14.5); WHITE BLOOD COUNT 7.8 x10^3/uL (4.0-11.0)
--- NOTE | 2017-12-04 21:04 | EKG ---
[address] [address] Test Date: 2017-12-04 Test Time: 19:57:34 Pat Name: ELIS TIM Department: Room: Gender: M Cathode Washer: JEFFERY : 1955 Requested By: RA BROWN Order Number: [id number] Reading MD: Thiago Hammonds MD Measurements Intervals [place] Rate: 91 P: 76 MO: 178 QRS: -62 QRSD: 118 T: 90 QT: 350 QTc: 438 Interpretive Statements SINUS RHYTHM ABNORMAL LEFT AXIS DEVIATION R-S TRANSITION ZONE IN V LEADS DISPLACED TO THE LEFT LEFT ANTERIOR FASCICULAR BLOCK Electronically Signed On 12-05-2017 10:25:20 CDT by Thiago Hammonds MD
[2017-12-04 21:10] LABS: CALCIUM 11.4 mg/dL (8.5-10.1); CREATININE 4.1 mg/dL (0.7-1.3); GFR 14.9; POTASSIUM 3.5 mmol/L (3.5-5.1)
--- NOTE | 2017-12-04 22:10 | RAD ---
CT scan of the head without contrast 12/04/2017 Clinical History: ALS with falls and mental status changes Technique: Unenhanced, contiguous, 5 mm axial sections were obtained through the head. One or more of the following individualized dose reduction techniques were utilized for this study: 1. Automated exposure control. 2. Adjustment of the mA and/or kV according to patient size. 3. Use of iterative reconstruction technique. Findings: No previous studies are available for comparison. There is generalized parenchymal atrophy. Areas of decreased attenuation are seen within the periventricular and subcortical white matter of both cerebral hemispheres consistent with areas of small vessel ischemic disease. No acute parenchymal abnormality is seen. No extra-axial fluid collection is noted. No skull fracture is seen. Impression: No acute intracranial abnormality is seen. CT scan of the cervical spine without contrast 12/04/2017 Clinical history: Fall with neck injury. Technique: Unenhanced, contiguous, 0.625 mm axial sections were obtained through the cervical spine. Axial, coronal and sagittal reconstructed images were obtained. One or more of the following individualized dose reduction techniques were utilized for this study: 1. Automated exposure control. 2. Adjustment of the mA and/or kV according to patient size. 3. Use of iterative reconstruction technique. Findings: Sagittal and coronal reconstructed images demonstrate mild lateral curvature of the cervical spine, convex to the left. There is straightening of the normal cervical lordosis. Degenerative changes consisting of vertebral endplate sclerosis and mild to moderate anterior and posterior vertebral body osteophyte formation are seen throughout the cervical disc spaces. No fracture or subluxation of the cervical vertebrae is seen. Degenerative changes are seen involving the uncovertebral and facet joints throughout the cervical disc spaces. Atherosclerotic calcification is seen in the region carotid bifurcations. Impression: No fracture or subluxation of the cervical vertebra is identified. Electronically signed by: Oscar Jaramillo MD (12/04/2017 10:06 PM) [facility]
[2017-12-04 22:16] LABS: SEDIMENTATION RATE 57 (0-15)
[2017-12-04 22:40] LABS: BARBITURATES NEG (NEG); BENZODIAZEPINES NEG (NEG); CANNABINOIDS NEG (NEG); COCAINE NEG (NEG); METHADONE NEG (NEG); OPIATES NEG (NEG); PHENCYCLIDINE NEG (NEG)
[2017-12-04 22:41] LABS: AMPHETAMINE/METHAMPHETAMINE NEG (NEG)
[2017-12-04 22:43] LABS: BILIRUBIN,URINE NEG (NEG); CLARITY,URINE CLOUDY; COLOR,URINE YELLOW; GLUCOSE,URINE 500 mg/dL (NEG); NITRITE,URINE NEG (NEG); UROBILINOGEN,URINE 0.2 mg/dL (0.2 mg/dL)
[2017-12-04 22:44] LABS: BACTERIA,URINE 0 /HPF (0-FEW); SQUAMOUS EPITHELIAL CELL,UR FEW /LPF; WBC,URINE >40 /HPF (0-4)
[2017-12-04] MEDS ORDERED: levoFLOXacin 500 MG TABLET PO ONE (23:00)
--- NOTE | 2017-12-04 23:29 | RAD ---
AP portable chest radiograph 12/04/2017 Clinical History: Chest pain. An AP erect portable digital radiograph of the chest was obtained. No previous studies are available for comparison. The cardiac silhouette is normal in size. The thoracic aorta is mildly tortuous. Atherosclerotic calcification of the thoracic aorta is seen. Mild fullness of the right paratracheal region is seen which likely reflects partially calcified lymph node. No acute pulmonary infiltrate is seen. Calcified granulomas are seen involving right lower lobe. No pneumothorax or pleural effusion is seen. Degenerative changes are seen involving the thoracic spine and both shoulders. IMPRESSION: No acute abnormality is seen. Electronically signed by: Oscar Jaramillo MD (12/04/2017 11:25 PM) [facility]
--- NOTE | 2017-12-04 23:50 | NUR ---
Admission: The patient, ELIS TIM, 62 y/o, M admitted by JANNA RAO MD, was given written information regarding hospital policies, unit procedures and contact persons. Pt arrived to room 124 via gurney, accompanied by [facility] and nursing sup. Pt originally came through ED for medical clearance to be admitted to [facility], but failed due to UTI and renal failure acute/chronic. Pt with BUN of 72 and Creatnine of 4.1. LR started at 160cc/hr per order. Pt with Hx of ALS and requires max assist, bilat hands are contracted. Resident at [facility]. Per halfway, pt has been refusing meds and cares, purposely urinating on floor, and verbally abusive towards staff for the past 3 weeks. Pt compliant with cares on unit thus far, however requires some encouragement. Pt is A/O person, place and time, but not situation. Irritable when asked admission questions. PMH and home meds obtained from medical records. POC discussed, pt V/U but will require reinforcement. Bed in lowest position with alarm set for safety. Call light in reach. Valuables were checked and logged. Only belongings sent up with patient were 3 books, left in room at bedside.
[2017-12-04 23:52] VITALS: BP 118/75
[2017-12-05] MEDS: IV RINGERS SOLUTION,LACTATED 1,000 ML IV SCH ×2 (00:30→05:35)
[2017-12-05] MEDS ORDERED: AMLO5TAB2 PO (05:04)
[2017-12-05] MEDS ORDERED: OXYC-323 PO (05:04)
[2017-12-05] MEDS ORDERED: FENO160T PO (05:04)
[2017-12-05] MEDS ORDERED: CHOL500016 PO (05:04)
[2017-12-05] MEDS ORDERED: CAMP85GE TP (05:04)
[2017-12-05] MEDS ORDERED: INSU100I27 SQ (05:04)
[2017-12-05] MEDS ORDERED: CINA30TA2 PO (05:04)
[2017-12-05] MEDS ORDERED: MENT222L TP (05:08)
[2017-12-05 05:10] VITALS: BP 124/63
[2017-12-05 06:34] LABS: CALCIUM 11.4 mg/dL (8.5-10.1); CREATININE 3.9 mg/dL (0.7-1.3); GFR 15.8; POTASSIUM 3.7 mmol/L (3.5-5.1)
[2017-12-05 07:03] LABS: BASO # 0.1 x10^3/uL (0.0-0.2); BASO % 1 % (0-3); EOS # 0.6 x10^3/uL (0.0-0.7); EOS % 9 % (0-3); HEMATOCRIT 29.9 % (39.0-53.0); LYMPH # 1.5 x10^3/uL (1.0-4.8); LYMPH % 22 % (24-48); MEAN CORPUSCULAR HEMOGLOBIN 28 pg (25-35); MEAN CORPUSCULAR HGB CONC 33 g/dL (31-37); MEAN CORPUSCULAR VOLUME 84 fL (79-100); MONO # 0.9 x10^3/uL (0.0-1.1); MONO % 13 % (0-9); NEUT # 3.8 x10^3uL (1.8-7.7); NEUT % 55 % (31-73); PLATELET COUNT 287 x10^3/uL (140-400); RED BLOOD COUNT 3.56 x10^6/uL (4.30-5.70); RED CELL DISTRIBUTION WIDTH 14.3 % (11.5-14.5); WHITE BLOOD COUNT 6.8 x10^3/uL (4.0-11.0)
[2017-12-05 08:55] LABS: % BANDS 1 % (0-9); % BASOS 2 % (0-3); % EOS 7 % (0-5); % LYMPHS 18 % (24-48); % METAS 1 % (0-0); % MONOS 15 % (0-10); % SEGS 56 % (35-66); PLT ESTIMATE ADEQUATE (ADEQUATE)
[2017-12-05 08:56] LABS: TOXIC GRANULATION SLIGHT
[2017-12-05 08:57] LABS: POLYCHROMASIA SLIGHT
[2017-12-05] MEDS ORDERED: cefTRIAXone IV Push 1 GM VIAL. IVP SCH (09:00)
--- NOTE | 2017-12-05 10:25 | CONS ---
DATE OF CONSULTATION: 12/05/2017 NEUROLOGIC CONSULTATION REFERRING PHYSICIAN: Nakia Denson MD REASON FOR CONSULTATION: Acute mental status changes. HISTORY OF PRESENT ILLNESS: This is a 62-year-old right-handed male who was admitted to Emergency Room yesterday after he presented with chief complaints of generalized weakness due to ALS diagnosed a year ago. According to the ER physician, the patient has had a disruptive behavior at [facility] with verbal abuse to staff. He complains of generalized fatigue and depression. He has been a resident at [facility] since 02/15/2017 and he was accepted for by [facility] by Dr. Chapman for further evaluation for his bipolar disorder. The patient has been also complaining of mid and epigastric pain and described his symptoms as a tightness and feeling like he has a mass in the abdomen, more prominent after he eats. He denies headaches, visual disturbances, chest pain, shortness of breath, palpitation, dysarthria, or dysphagia. The patient has been confined to a wheelchair. PAST MEDICAL HISTORY: Significant for ALS diagnosed a year ago at [facility] after he presented with generalized weakness and muscle wasting and difficulty to walk, history of kidney disease, and alcohol abuse. Hyperlipidemia, peripheral neuropathy, hypertension, history of right middle finger fracture, diabetes mellitus, history of substance abuse as meth in the past, and hepatitis C. SOCIAL HISTORY: The patient is a [facility] resident. He denies smoking, but he drinks 6 ounces of vodka daily. He denies illegal drug use. CURRENT HOSPITAL MEDICATIONS: Rocephin intravenously. ALLERGIES: No known drug allergies. FAMILY HISTORY: Noncontributory. REVIEW OF SYSTEMS: A 10-point review of system was performed as mentioned above in history of present illness. PHYSICAL EXAMINATION: GENERAL: Well-developed white male, not in acute distress. He weighs 220 pounds. VITAL SIGNS: Blood pressure 124/63, respiratory rate 18, pulse is 87 and regular, temperature 98, oxygen saturation is 95% on room air. HEENT: Normocephalic, atraumatic, otherwise unremarkable. NECK: Supple. Negative for carotid bruit, lymphadenopathy, JVD, or thyromegaly. LUNGS: Clear to A and P. CARDIOVASCULAR: Regular rhythm, normal S1, S2. ABDOMEN: Soft. Bowel sounds positive. Mild tenderness in the mid and epigastric regions. No palpable mass or organomegaly. EXTREMITIES: Negative for cyanosis, clubbing, or pitting edema. NEUROLOGIC: Mental Status: The patient is alert and oriented x 3. Speech is fluent. There is no language dysfunction. Memory, judgment, and abstract thinkings are fair. The patient denies hallucination or delusion. Cranial nerves: Visual soni are full. The pupils are reactive to light and accommodation. The extraocular movements are intact. There is no nystagmus. There is no facial motor or sensory deficit. Hearing appear to be intact. The palate is elevated symmetrically. Sternocleidomastoid muscles are powerful bilaterally. The patient protrudes his tongue in the midline without fasciculation. Motor examination reveals generalized muscle wasting. The strength is 3/5 throughout. Sensory examination revealed normal pinprick and light touch senses throughout. Deep tendon reflexes were hypoactive with negative Babinski and absent Achilles responses. Gait not tested. The patient has normal [id number]. DIAGNOSTIC DATA: Nonenhanced head CT scan revealed no evidence of acute intracranial process and cervical spine CT scan revealed no evidence of fracture or acute abnormalities. LABORATORY DATA: CBC revealed white blood cells of 6800, hemoglobin 10, hematocrit 29.9, platelet count 287,000. Chemistry revealed sodium of 139, potassium 3.7, chloride 102, CO2 27, BUN 67, creatinine 0.9, and glucose 151. Calcium is elevated at 11.4. Urine drug screen is positive for alcohol. Urinalysis is consistent with urinary tract infections with large urinary leukocyte esterase and white blood cells more than 40. IMPRESSION: 1. Urinary tract infections. 2. Acute/chronic renal failure. 3. Ongoing history of amyotrophic lateral sclerosis. 4. Multiple psychiatric problems including bipolar disorder, behavior disturbance, and possible early dementia. 5. History of hypertension, hyperlipidemia, and diabetes mellitus. 6. Anemia. RECOMMENDATIONS: We will continue with current management with antibiotic. Hydration. Continue with current management initiated by Dr. Denson. M Marta MUELLER MD DR: RICH/lj JOB#: [id number] / [id number]
[2017-12-05 13:34] VITALS: BP 125/78
[2017-12-05 15:25] VITALS: BP 124/68
--- NOTE | 2017-12-05 16:14 | SSS ---
ADMIT DATE: 12/05/2017 HISTORY OF PRESENT ILLNESS: The patient is a 62-year-old male patient who was a resident at [facility] and who was brought to the Emergency Room on account of mental status changes. The patient has been refusing care, assaultive, uncooperative in his care and verbally abusive to the staff. He has been refusing his medication, will not redirect his general disruptive behavior. Over the last 3 weeks, the patient has a history of major depressive disorder, poor impulse control, antisocial disorder, oppositional defiant disorder and was basically evaluated initially for admission to be admitted to [facility]. In the Emergency Room, he was found to have worsening kidney function as well as urinary tract infection and was admitted to [address] [place] [address] and was started on IV Rocephin as well as IV fluid. PAST MEDICAL HISTORY: Significant for type 2 diabetes mellitus, neurogenic bladder, peripheral diabetic neuropathy, amyotrophic lateral sclerosis, dysphagia, muscle wasting, hypertension, anemia, and has chronic renal failure. PAST SURGICAL HISTORY: Includes suprapubic catheter placement. ALLERGIES: He has no known drug allergies. MEDICATIONS: He was on following medications: Fenofibrate 160 mg once a day, atorvastatin calcium 20 mg at bedtime, clonidine 0.1 mg twice a day, amlodipine 5 mg daily, oxycodone/APAP 5/325 one tablet every 4 hours, gabapentin 800 mg twice a day, bisacodyl 5 mg tablet daily as needed for constipation, bisacodyl 10 mg rectally every Saturday, Saturday, Saturday. He is on docusate sodium 100 mg twice a day, Fleet Enema daily as needed, ondansetron for Zofran ODT 4 mg every 8 hours, dronabinol 5 mg twice a day. He is on NovoLog FlexPen 5 units before meals and he is also on insulin sliding scale. He is on Levemir 10 units at bedtime, Cinacalcet 60 mg daily, levothyroxine 25 mcg once a day, cyanocobalamin vitamin B12 1000 mcg p.o. daily, cholecalciferol 5000 International Unit p.o. daily, and alendronate sodium for Fosamax one tablet every Saturday. FAMILY HISTORY: Noncontributory. SOCIAL HISTORY: He is a resident at [facility]. He continues to smoke and drink alcohol. REVIEW OF SYSTEMS: As per history of present illness. PHYSICAL EXAMINATION GENERAL: When I examined him this morning, he was resting slightly propped up in bed, in no apparent respiratory distress, pale, but no jaundice, cyanosis, or thyromegaly. No jugular venous distention. No limb edema. VITAL SIGNS: His heart rate was 88, blood pressure was 125/78, temperature was 98.7, respiratory rate was 18, and oxygen saturation was 96%. HEAD, EYES, EARS, NOSE, AND THROAT: Showed normocephalic, atraumatic. NECK: Supple. HEART: Showed normal first and second sounds. No gallop, rub, or murmur. CHEST: Clear to auscultation. No crepitation or rhonchi. ABDOMEN: Distended, soft, nontender. No guarding or rigidity. No organomegaly. Hernial orifice intact. Bowel sounds normal. NEUROLOGIC: He is awake, alert, responding appropriately. Cranial nerves intact. He moves upper extremities to much greater extent than his lower extremities. Apparently incontinent of bowel and bladder. LABORATORY DATA: His lab work on admission showed a white cell count of 7800, hemoglobin 10.6, hematocrit 32, MCV 84 and platelet count 296,000. Serum sodium was 137, potassium 3.5, chloride 100, bicarbonate 21, anion gap of 16, BUN 72, creatinine 4.1, estimated GFR was 39 mL per minute. His glucose was 134, calcium was 11.4, magnesium was 2, creatinine was 115 and pediatrics peptide was 136. His prothrombin time was 10.4, INR 1, aPTT was 23. Urinalysis showed the urine was yellow, cloudy with a pH of 5.5, specific gravity of 1.010. There was trace amount of protein, large amount of glucose. The urine was negative for. There was moderate amount of blood, negative for nitrite and leukocyte esterase. There was amount of leukocyte esterase, 3-5 rbc's, more than 40 wbc's, no bacteria. His toxicology screen was essentially negative except for alcohol and his cream to perineum of AlloDerm antibodies were nonreactive. The patient was started on IV ceftriaxone and IV fluid and his chemistry is BUN came down to 67, creatinine 33 and 0.9. His baseline is about 3.6 mg about a year ago and therefore The patient was switched to cefpodoxime and 100 mg once a day and [facility] for inpatient psychiatric stabilization. FINAL DISCHARGE DIAGNOSES: 1. Urinary tract infection. 2. Acute on chronic kidney injury. 3. Chronic kidney disease, hypertension, hypothyroidism, hyperlipidemia. JANNA RAO MD DR: LAN/lj JOB#: [id number] / [id number]
--- NOTE | 2017-12-05 17:00 | NUR ---
NURSING NOTE: Pt refused all accuchecks today. No insulin administered. Pt refused vital signs, as well, but did finally agree to one set of vital signs this afternoon.
--- NOTE | 2017-12-05 17:44 | NUR ---
Discharge Note: ELIS TIM1 [facility] Discharge instructions and discharge home medications reviewed with SEVEN HERNANDEZ RN, and a copy given. All questions have been answered and understanding verbalized. The following instructions and handouts were given: MEDICATIONS, LABS, BEHAVIORS, PLAN OF CARE Discontinued lines and drains: PERIPHERAL IV DISCONTINUED WITH NO COMPLICATIONS. Patient discharged to [facility] via WHEELCHAIR.
[2017-12-05] MEDS ORDERED: CEFP100T PO (19:38)
[2017-12-05] MEDS ORDERED: LACTOBACILLUS RHAMNOSUS GG 1 CAPSULE. PO SCH (21:00)
== END 2017-12-05 18:36 | disposition short-term general hospital (02) ==
LOC: ER 19:53 → 1 SOUTH 21:38 → INTOOBSV 21:38
PROVIDERS: ADMIT Internal Medicine; ATTEND Internal Medicine
DX: N39.0 Urinary tract infection, site not specified (principal); N17.9 Acute kidney failure, unspecified; I12.9 Hypertensive chronic kidney disease with stage 1 through stage 4 chronic kidney disease, or unspecified chronic kidney disease; N18.9 Chronic kidney disease, unspecified; E03.9 Hypothyroidism, unspecified; E11.22 Type 2 diabetes mellitus with diabetic chronic kidney disease; E11.42 Type 2 diabetes mellitus with diabetic polyneuropathy; E78.5 Hyperlipidemia, unspecified; F03.90 Unspecified dementia, unspecified severity, without behavioral disturbance, psychotic disturbance, mood disturbance, and anxiety; F31.9 Bipolar disorder, unspecified; F17.200 Nicotine dependence, unspecified, uncomplicated; D64.9 Anemia, unspecified
CPT/HCPCS: 87086; 96361; 96374; 99285; 99406; G0378; J0696; J7120; 36415; 70450; 71045; 72125; 80048; 80307; 81001; 82553; 82947; 83735; 83880; 84484; 85007; 85025; 85610; 85651; 85730; 86592; 87186; 87641; 93005; G0379; G0479

== ENCOUNTER 2017-12-05 17:02 | Inpatient (IN) | payer OTHER ==
[~2017-12-05] VITALS: Ht 188 cm; Wt 99.0 kg
[~2017-12-05 17:02] MED LIST changes: +AMLO5TAB2 PO; +CAMP85GE TP; +CHOL500016 PO; +CINA30TA2 PO; +FENO160T PO; +INSU100I27 SQ; +MENT222L TP; +OXYC-323 PO
[2017-12-05] MEDS ORDERED: METHYL SALICYLATE/MENTHOL TOPICAL OINTMENT 29GM TUBE. TP PRN (19:00)
[2017-12-05] MEDS ORDERED: MAGNESIUM HYDROXIDE 2,400 MG/30 ML ORAL.SUSP. PO PRN (19:00)
[2017-12-05] MEDS ORDERED: ACETAMINOPHEN 325 MG TABLET PO PRN (19:00)
[2017-12-05] MEDS ORDERED: MAG HYDROX/AL HYDROX/SIMETH 30 ML ORAL.SUSP PO PRN (19:00)
[2017-12-05 19:18] VITALS: BP 141/82
[2017-12-05] MEDS ORDERED: CEFP100T PO (19:38)
[2017-12-05] MEDS ORDERED: BISACODYL TAB 5 MG TABLET.DR. PO PRN (19:45)
[2017-12-05] MEDS ORDERED: oxyCODONE/APAP 5/325 1 TAB TABLET PO PRN (19:45)
[2017-12-05] MEDS ORDERED: SODIUM PHOSPHATES 19/7GM 133 ML ENEMA. RC PRN (19:45)
[2017-12-05] MEDS ORDERED: ONDANSETRON ODT 4 MG TAB.RAPDIS PO PRN (20:15)
[2017-12-05] MEDS ORDERED: BISACODYL 10 MG SUPP.RECT PR PRN (20:15)
[2017-12-05] MEDS: ATORVASTATIN CALCIUM 20 MG TABLET PO SCH (20:58)
[2017-12-05] MEDS: LACTOBACILLUS RHAMNOSUS GG 1 CAPSULE. PO SCH (20:58)
[2017-12-05] MEDS: GABAPENTIN 400 MG CAPSULE. PO SCH (20:58)
[2017-12-05] MEDS: cloNIDine HCL 0.1 MG TABLET PO SCH (20:58)
[2017-12-05] MEDS ORDERED: CAMPHOR TP SCH (21:00)
[2017-12-05] MEDS ORDERED: MENTHOL TP SCH (21:00)
--- NOTE | 2017-12-05 21:00 | PDOC ---
Exam Note: Chad Note: Please also refer to the separate dictated note~for this date of service dictated separately.~Patient seen individually. Discussed the patient with Nursing staff reviewed the chart.~Reviewed interim history and current functioning. Reviewed vital signs,~Labs/ Radiology~and current medications noted below. Continue current treatment with the changes noted in the dictated addendum note Assessment: Vital Signs: Vital Signs Date Time Temp Pulse Resp B/P (MAP) Pulse Ox O2 Delivery O2 Flow Rate FiO2 12/05/17 19:18 98.3 92 20 141/82 (101) 96 Labs: Laboratory Tests Test 12/05/17 06:00 Magnesium Level 1.9 mg/dL (1.8-2.4) Current Medications: Meds: Current Medications Acetaminophen (Tylenol) 650 mg PRN Q6HRS PRN PO PAIN / TEMP; Start 12/05/17 at 19:00 Multi-Ingredient Ointment (Analgesic [place]) 1 tia PRN QID PRN TP MUSCLE PAIN; Start 12/05/17 at 19:00 Al Hydroxide/Mg Hydroxide (Mylanta Plus Xs) 15 ml PRN AFTMEALHC PRN PO DYSPEPSIA; Start 12/05/17 at 19:00 Magnesium Hydroxide (Milk Of Magnesia) 2,400 mg PRN QHS PRN PO CONSTIPATION; Start 12/05/17 at 19:00 Sertraline HCl (Zoloft) 50 mg DAILYWBKFT PO ; Start 12/06/17 at 08:00 Atorvastatin Calcium (Lipitor) 20 mg HS PO ; Start 12/05/17 at 21:00 Bisacodyl (Dulcolax Tab) 5 mg PRN DAILY PRN PO CONSTIPATION; Start 12/05/17 at 19:45 Cinacalcet (Sensipar) 60 mg DAILY PO ; Start 12/06/17 at 09:00 Clonidine HCl (Catapres) 0.1 mg BID PO ; Start 12/05/17 at 21:00 Cyanocobalamin (Vitamin B-12) 1,000 mcg DAILY PO ; Start 12/06/17 at 09:00 Gabapentin (Neurontin) 800 mg BID PO ; Start 12/05/17 at 21:00 Sodium Biphosphate/ Sodium Phosphate (Fleet Adult) 133 ml PRN DAILY PRN RC CONSTIPATION; Start 12/05/17 at 19:45 Ondansetron HCl (Zofran Odt) 4 mg PRN Q8HRS PRN PO NAUSEA/VOMITING; Start 12/05 at 20:15 Oxycodone/ Acetaminophen (Percocet 5/325) 1 tab PRN Q4HRS PRN PO PAIN; Start at 19:45 Alendronate Sodium (Fosamax) 70 mg QM PO ; Start 12/09/17 at 16:00 Amlodipine Besylate (Norvasc) 5 mg DAILY PO ; Start 12/06/17 at 09:00 Bisacodyl (Dulcolax Supp) 10 mg PRN DAILY PRN CA CONSTIPATION; Start 12/05/17 at 20:15 Bisacodyl (Dulcolax Supp) 10 mg QMWF CA ; Start 12/06/17 at 16:00 Cefpodoxime Proxetil (Vantin) 100 mg DAILY PO ; Start 12/06/17 at 09:00; Stop at 08:59 Vitamin D (Vitamin D3) 5,000 unit DAILY PO ; Start 12/06/17 at 09:00 Docusate Sodium (Colace) 200 mg DAILY PO ; Start 12/06/17 at 09:00 Dronabinol (Marinol) 5 mg BIDACLD PO ; Start 12/06/17 at 11:30 Fenofibrate (Tricor) 145 mg DAILY PO ; Start 12/06/17 at 09:00 Non-Formulary Medication (Insulin Aspart (Novolog Flexpen)) Hold if FSBS <150 ... BIDBFRMEAL SQ ; Start 12/06/17 at 07:30; Stop 12/06/17 at 07:30; Status DC Insulin Human Lispro (HumaLOG) 5 units TIDWMEALS SQ ; Start 12/06/17 at 08:00 Insulin Glargine (Lantus) 10 units QHS SQ ; Start 12/05/17 at 21:00 Levothyroxine Sodium (Synthroid) 25 mcg DAILY07 PO ; Start 12/06/17 at 07:00 Non-Formulary Medication (Menthol/Camphor (Sarna Anti-Itch Lotion)) 1 tia BID TP ; Start 12/05/17 at 21:00; Stop 12/05/17 at 21:00; Status DC Insulin Human Lispro (HumaLOG) 0-5 UNITS BIDWMEALS SQ ; Start 12/06/17 at 08:00 Lactobacillus Rhamnosus (Culturelle) 1 cap BID PO ; Start 12/05/17 at 21:00 Active Scripts Active Reported Cefpodoxime Proxetil 100 Mg Tablet 100 Mg PO DAILY X7 DAYS Sarna Anti-Itch Lotion (Menthol/Camphor) 222 Ml Lotion 1 Tia TP BID Percocet 5-325 Mg Tablet (Oxycodone Hcl/Acetaminophen) 1 Each Tablet 1 Each PO PRN Q4HRS PRN Sensipar (Cinacalcet Hcl) 30 Mg Tablet 60 Mg PO DAILY Fenofibrate 160 Mg Tablet 1 Tab PO DAILY Amlodipine Besylate 5 Mg Tablet 5 Mg PO DAILY Vitamin D3 (Cholecalciferol (Vitamin D3)) 5,000 Unit Tablet 1 Tab PO DAILY Levemir Flextouch (Insulin Detemir) 100 Unit/1 Ml Insuln.pen 10 Unit SQ HS Novolog Flexpen (Insulin Aspart) 100 Unit/1 Ml Insuln.pen 0-6 Unit SQ BIDBFRMEAL SLIDING SCALE INSULIN *HOLD IF FSBS <150 201-250 = 2U 251-300 = 3U 301-350 = 4U 351-400 = 6U Bisacodyl 10 Mg Supp.rect 10 Mg RC PRN DAILY PRN Zofran Odt (Ondansetron) 4 Mg Tab.rapdis 1 Tab SL Q8HRS PRN Novolog Flexpen (Insulin Aspart) 100 Unit/1 Ml Insuln.pen 5 Unit SQ TIDWMEALS Neurontin (Gabapentin) 400 Mg Capsule 800 Mg PO BID Dronabinol 5 Mg Capsule 5 Mg PO BID Levothyroxine Sodium 25 Mcg Tablet 25 Mcg PO DAILYAC Fosamax (Alendronate Sodium) 70 Mg Tablet 1 Tab PO QM Fleet Enema (Na Phos,M-B/Na Phos,Di-Ba) 133 Ml Enema 1 Each RC DAILY PRN Colace (Docusate Sodium) 100 Mg Capsule 200 Mg PO DAILY Clonidine Hcl 0.1 Mg Tablet 0.1 Mg PO BID Bisacodyl 10 Mg Supp.rect 10 Mg RC QMWF Bisacodyl 5 Mg Tablet.dr 5 Mg PO PRN DAILY PRN B-12 (Cyanocobalamin (Vitamin B-12)) 1,000 Mcg Tablet 1,000 Mcg PO DAILY Atorvastatin Calcium 20 Mg Tablet 1 Tab PO HS I have reviewed the current psychotropics carefully including drug interactions. Risk benefit ratio favors no change other than as noted in my dictated progress note. Diagnosis: Problems: (1) [id number] kidney injury (2) Urinary tract infection (3) Major depression (4) Impulse control disorder MICAH MCNAIR MD Dec 05, 2017 21:00
[2017-12-05] MEDS: INSULIN GLARGINE 300 UNITS/3 ML INSULN.PEN. SQ SCH (21:01)
[2017-12-06 05:58] VITALS: BP 103/69
[2017-12-06] MEDS: LEVOTHYROXINE 25 MCG TABLET. PO SCH (06:17)
[2017-12-06] MEDS ORDERED: NON FORMULARY ITEM (Insulin Aspart (Novolog Flexpen) 0 UNIT) SQ SCH (07:30)
[2017-12-06] MEDS: cloNIDine HCL 0.1 MG TABLET PO SCH ×2 (07:54→19:38)
[2017-12-06] MEDS: GABAPENTIN 400 MG CAPSULE. PO SCH ×2 (07:54→19:38)
[2017-12-06] MEDS: LACTOBACILLUS RHAMNOSUS GG 1 CAPSULE. PO SCH ×3 (07:54→19:38)
[2017-12-06] MEDS: INSULIN LISPRO 300 UNITS/3 ML INSULN.PEN. SQ SCH ×5 (07:55→17:54)
[2017-12-06] MEDS: CINACALCET HCL 30 MG TABLET PO SCH (07:55)
[2017-12-06] MEDS: CHOLECALCIFEROL (VITAMIN D3) 1,000 UNIT TABLET PO SCH (07:59)
[2017-12-06] MEDS: amLODIPine BESYLATE 5 MG TABLET PO SCH (07:59)
[2017-12-06] MEDS: CEFPODOXIME PROXETIL 100 MG TABLET PO SCH (07:59)
[2017-12-06] MEDS: FENOFIBRATE NANOCRYSTALLIZED 145 MG TABLET PO SCH (07:59)
[2017-12-06] MEDS: CYANOCOBALAMIN (VITAMIN B-12) 1,000 MCG TABLET. PO SCH (07:59)
[2017-12-06] MEDS: DOCUSATE SODIUM 100 MG CAPSULE PO SCH (08:00)
[2017-12-06] MEDS: SERTRALINE 50 MG TABLET. PO SCH (08:00)
[2017-12-06] MEDS: DRONABINOL 2.5 MG CAPSULE PO SCH ×2 (13:06→17:52)
[2017-12-06 13:31] LABS: THYROID STIM HORMONE (TSH) 2.893 uIU/mL (0.358-3.740)
[2017-12-06] MEDS ORDERED: BISACODYL 10 MG SUPP.RECT PR SCH (16:00)
[2017-12-06 16:21] VITALS: BP 142/71
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
[2017-12-06] MEDS: ATORVASTATIN CALCIUM 20 MG TABLET PO SCH (19:38)
[2017-12-06] MEDS: INSULIN GLARGINE 300 UNITS/3 ML INSULN.PEN. SQ SCH (19:40)
[2017-12-06 20:09] LABS: THYROXINE 7.4 ug/dL (4.5-12.0)
--- NOTE | 2017-12-06 20:57 | PDOC ---
Exam Note: Chad Note: Please also refer to the separate dictated note~for this date of service dictated separately.~Patient seen individually. Discussed the patient with Nursing staff reviewed the chart.~Reviewed interim history and current functioning. Reviewed vital signs,~Labs/ Radiology~and current medications noted below. Continue current treatment with the changes noted in the dictated addendum note Assessment: Vital Signs: Vital Signs Date Time Temp Pulse Resp B/P (MAP) Pulse Ox O2 Delivery O2 Flow Rate FiO2 12/06/17 19:38 86 142/71 12/06/17 16:21 98.2 18 98 I&O Intake and Output 12/06/17 07:00 Intake Total 240 ml Balance 240 ml Intake Oral 240 ml # Voids 1 Labs: Laboratory Tests Test 12/06/17 07:21 12/06/17 12:15 12/06/17 16:57 12/06/17 19:02 Glucose (Fingerstick) 136 mg/dL (70-99) H 232 mg/dL (70-99) H 163 mg/dL (70-99) H 148 mg/dL (70-99) H Current Medications: Meds: Current Medications Acetaminophen (Tylenol) 650 mg PRN Q6HRS PRN PO PAIN / TEMP; Start 12/05/17 at 19:00 Multi-Ingredient Ointment (Analgesic [place]) 1 tia PRN QID PRN TP MUSCLE PAIN; Start 12/05/17 at 19:00 Al Hydroxide/Mg Hydroxide (Mylanta Plus Xs) 15 ml PRN AFTMEALHC PRN PO DYSPEPSIA; Start 12/05/17 at 19:00 Magnesium Hydroxide (Milk Of Magnesia) 2,400 mg PRN QHS PRN PO CONSTIPATION Last administered on 12/06/17at 13:06; Start 12/05/17 at 19:00 Sertraline HCl (Zoloft) 50 mg DAILYWBKFT PO Last administered on 12/06/17at 08: 00; Start 12/06/17 at 08:00 Atorvastatin Calcium (Lipitor) 20 mg HS PO Last administered on 12/06/17at 19:38 ; Start 12/05/17 at 21:00 Bisacodyl (Dulcolax Tab) 5 mg PRN DAILY PRN PO CONSTIPATION; Start 12/05/17 at 19:45 Cinacalcet (Sensipar) 60 mg DAILY PO Last administered on 12/06/17at 07:55; Start 12/06/17 at 09:00 Clonidine HCl (Catapres) 0.1 mg BID PO Last administered on 12/06/17at 19:38; Start 12/05/17 at 21:00 Cyanocobalamin (Vitamin B-12) 1,000 mcg DAILY PO Last administered on at 07:59; Start 12/06/17 at 09:00 Gabapentin (Neurontin) 800 mg BID PO Last administered on 12/06/17at 19:38; Start 12/05/17 at 21:00 Sodium Biphosphate/ Sodium Phosphate (Fleet Adult) 133 ml PRN DAILY PRN RC CONSTIPATION; Start 12/05/17 at 19:45 Ondansetron HCl (Zofran Odt) 4 mg PRN Q8HRS PRN PO NAUSEA/VOMITING; Start 12/05 at 20:15 Oxycodone/ Acetaminophen (Percocet 5/325) 1 tab PRN Q4HRS PRN PO PAIN; Start at 19:45 Alendronate Sodium (Fosamax) 70 mg QM PO ; Start 12/09/17 at 16:00 Amlodipine Besylate (Norvasc) 5 mg DAILY PO Last administered on 12/06/17at 07: 59; Start 12/06/17 at 09:00 Bisacodyl (Dulcolax Supp) 10 mg PRN DAILY PRN [place] CONSTIPATION; Start 12/05/17 at 20:15 Bisacodyl (Dulcolax Supp) 10 mg QMWF OH Last administered on 12/06/17at 16:00; Start 12/06/17 at 16:00 Cefpodoxime Proxetil (Vantin) 100 mg DAILY PO Last administered on 12/06/17at 07 :59; Start 12/06/17 at 09:00; Stop 12/12/17 at 08:59 Vitamin D (Vitamin D3) 5,000 unit DAILY PO Last administered on 12/06/17at 07:59 ; Start 12/06/17 at 09:00 Docusate Sodium (Colace) 200 mg DAILY PO Last administered on 12/06/17at 08:00; Start 12/06/17 at 09:00 Dronabinol (Marinol) 5 mg BIDACLD PO Last administered on 12/06/17at 17:52; Start 12/06/17 at 11:30 Fenofibrate (Tricor) 145 mg DAILY PO Last administered on 12/06/17at 07:59; Start 12/06/17 at 09:00 Non-Formulary Medication (Insulin Aspart (Novolog Flexpen)) Hold if FSBS <150 ... BIDBFRMEAL SQ ; Start 12/06/17 at 07:30; Stop 12/06/17 at 07:30; Status DC Insulin Human Lispro (HumaLOG) 5 units TIDWMEALS SQ Last administered on at 17:53; Start 12/06/17 at 08:00 Insulin Glargine (Lantus) 10 units QHS SQ Last administered on 12/06/17at 19:40 ; Start 12/05/17 at 21:00 Levothyroxine Sodium (Synthroid) 25 mcg DAILY07 PO Last administered on at 06:17; Start 12/06/17 at 07:00 Non-Formulary Medication (Menthol/Camphor (Sarna Anti-Itch Lotion)) 1 tia BID TP ; Start 12/05/17 at 21:00; Stop 12/05/17 at 21:00; Status DC Insulin Human Lispro (HumaLOG) 0-5 UNITS BIDWMEALS SQ Last administered on 12/06at 17:54; Start 12/06/17 at 08:00 Lactobacillus Rhamnosus (Culturelle) 1 cap BID PO Last administered on at 19:38; Start 12/05/17 at 21:00 Active Scripts Active Reported Cefpodoxime Proxetil 100 Mg Tablet 100 Mg PO DAILY X7 DAYS Sarna Anti-Itch Lotion (Menthol/Camphor) 222 Ml Lotion 1 Tia TP BID Percocet 5-325 Mg Tablet (Oxycodone Hcl/Acetaminophen) 1 Each Tablet 1 Each PO PRN Q4HRS PRN Sensipar (Cinacalcet Hcl) 30 Mg Tablet 60 Mg PO DAILY Fenofibrate 160 Mg Tablet 1 Tab PO DAILY Amlodipine Besylate 5 Mg Tablet 5 Mg PO DAILY Vitamin D3 (Cholecalciferol (Vitamin D3)) 5,000 Unit Tablet 1 Tab PO DAILY Levemir Flextouch (Insulin Detemir) 100 Unit/1 Ml Insuln.pen 10 Unit SQ HS Novolog Flexpen (Insulin Aspart) 100 Unit/1 Ml Insuln.pen 0-6 Unit SQ BIDBFRMEAL SLIDING SCALE INSULIN *HOLD IF FSBS <150 201-250 = 2U 251-300 = 3U 301-350 = 4U 351-400 = 6U Bisacodyl 10 Mg Supp.rect 10 Mg RC PRN DAILY PRN Zofran Odt (Ondansetron) 4 Mg Tab.rapdis 1 Tab SL Q8HRS PRN Novolog Flexpen (Insulin Aspart) 100 Unit/1 Ml Insuln.pen 5 Unit SQ TIDWMEALS Neurontin (Gabapentin) 400 Mg Capsule 800 Mg PO BID Dronabinol 5 Mg Capsule 5 Mg PO BID Levothyroxine Sodium 25 Mcg Tablet 25 Mcg PO DAILYAC Fosamax (Alendronate Sodium) 70 Mg Tablet 1 Tab PO QM Fleet Enema (Na Phos,M-B/Na Phos,Di-Ba) 133 Ml Enema 1 Each RC DAILY PRN Colace (Docusate Sodium) 100 Mg Capsule 200 Mg PO DAILY Clonidine Hcl 0.1 Mg Tablet 0.1 Mg PO BID Bisacodyl 10 Mg Supp.rect 10 Mg RC QMWF Bisacodyl 5 Mg Tablet.dr 5 Mg PO PRN DAILY PRN B-12 (Cyanocobalamin (Vitamin B-12)) 1,000 Mcg Tablet 1,000 Mcg PO DAILY Atorvastatin Calcium 20 Mg Tablet 1 Tab PO HS I have reviewed the current psychotropics carefully including drug interactions. Risk benefit ratio favors no change other than as noted in my dictated progress note. Diagnosis: Problems: (1) Urinary tract infection (2) Impulse control disorder (3) Major depression (4) [id number] kidney injury MICAH MCNAIR MD Dec 06, 2017 20:57
[2017-12-07 01:12] LABS: HEMOGLOBIN A1C 8.2 % (4.8-5.6)
[2017-12-07 06:06] VITALS: BP 108/69
[2017-12-07] MEDS: LEVOTHYROXINE 25 MCG TABLET. PO SCH (06:17)
[2017-12-07] MEDS: CHOLECALCIFEROL (VITAMIN D3) 1,000 UNIT TABLET PO SCH (07:48)
[2017-12-07] MEDS: amLODIPine BESYLATE 5 MG TABLET PO SCH (07:49)
[2017-12-07] MEDS: SERTRALINE 50 MG TABLET. PO SCH (07:49)
[2017-12-07] MEDS: cloNIDine HCL 0.1 MG TABLET PO SCH ×2 (07:49→20:12)
[2017-12-07] MEDS: GABAPENTIN 400 MG CAPSULE. PO SCH ×2 (07:50→20:13)
[2017-12-07] MEDS: DOCUSATE SODIUM 100 MG CAPSULE PO SCH (07:51)
[2017-12-07] MEDS: LACTOBACILLUS RHAMNOSUS GG 1 CAPSULE. PO SCH ×2 (07:51→20:13)
[2017-12-07] MEDS: CEFPODOXIME PROXETIL 100 MG TABLET PO SCH (07:51)
[2017-12-07] MEDS: CINACALCET HCL 30 MG TABLET PO SCH (07:51)
[2017-12-07] MEDS: FENOFIBRATE NANOCRYSTALLIZED 145 MG TABLET PO SCH (07:51)
[2017-12-07] MEDS: CYANOCOBALAMIN (VITAMIN B-12) 1,000 MCG TABLET. PO SCH (07:51)
[2017-12-07] MEDS: INSULIN LISPRO 300 UNITS/3 ML INSULN.PEN. SQ SCH ×5 (08:00→18:09)
--- NOTE | 2017-12-07 09:57 | PN ---
DATE: 12/06/2017 PSYCHIATRIC PROGRESS NOTE This late entry 12/06/2017 covers elements not covered in my initial note of 12/06/2017. SUBJECTIVE: Met with the patient at length in his room in evening of 12/06/2017. BUN 67, creatinine 3.9. He slept 2 hours previous evening, did well in the morning, took his medications in Boost. Complains of constipation, has received a suppository. REVIEW OF SYSTEMS: Ambulation is impaired. No CV, system symptoms on review. MENTAL STATUS EXAM: Reasonably oriented. Speech coherent, little rapid at times, anxious. Abstraction fair. Insight very limited. Judgment intact to standard questioning. We addressed circumstances prompting referral from the [facility]. Insight is very limited as noted above this. No active suicidal or homicidal ideation. IMPRESSION: Major depressive disorder; anxiety disorder, unspecified; impulse control disorder. Rest history of methamphetamine abuse. PLAN: Continue Zoloft 50 mg a day. Consider adding BuSpar. Rest unchanged from before. MAN Neo MCNAIR MD DR: MARINA/lj JOB#: [id number] / [id number]
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
[2017-12-07] MEDS: DRONABINOL 2.5 MG CAPSULE PO SCH ×2 (13:00→18:06)
[2017-12-07] MEDS ORDERED: BISA5TAB4 PO (13:58)
[2017-12-07] MEDS ORDERED: ACET325T9 PO (13:58)
[2017-12-07] MEDS ORDERED: LACT1CAP2 PO (14:00)
[2017-12-07] MEDS ORDERED: MAG355OR12 PO (14:03)
[2017-12-07] MEDS ORDERED: MAGN2400 PO (14:03)
[2017-12-07] MEDS ORDERED: SERT50TA PO (14:04)
[2017-12-07] MEDS ORDERED: MENT113G6 TP (14:04)
[2017-12-07 16:06] VITALS: BP 107/68
[2017-12-07] MEDS: ATORVASTATIN CALCIUM 20 MG TABLET PO SCH (20:12)
[2017-12-07] MEDS: INSULIN GLARGINE 300 UNITS/3 ML INSULN.PEN. SQ SCH (20:15)
--- NOTE | 2017-12-07 22:54 | PDOC ---
Exam Note: Chad Note: Please also refer to the separate dictated note~for this date of service dictated separately.~Patient seen individually. Discussed the patient with Nursing staff reviewed the chart.~Reviewed interim history and current functioning. Reviewed vital signs,~Labs/ Radiology~and current medications noted below. Continue current treatment with the changes noted in the dictated addendum note Assessment: Vital Signs: Vital Signs Date Time Temp Pulse Resp B/P (MAP) Pulse Ox O2 Delivery O2 Flow Rate FiO2 12/07/17 20:12 73 107/68 12/07/17 16:06 98.5 16 95 I&O Intake and Output 12/07/17 07:00 Intake Total 1080 ml Balance 1080 ml Intake Oral 1080 ml # Voids 2 # Bowel Movements 1 Labs: Laboratory Tests Test 12/07/17 07:24 12/07/17 11:56 12/07/17 17:36 12/07/17 19:19 Glucose (Fingerstick) 231 mg/dL (70-99) H 177 mg/dL (70-99) H 170 mg/dL (70-99) H 152 mg/dL (70-99) H Current Medications: Meds: Current Medications Acetaminophen (Tylenol) 650 mg PRN Q6HRS PRN PO PAIN / TEMP; Start 12/05/17 at 19:00 Multi-Ingredient Ointment (Analgesic [place]) 1 tia PRN QID PRN TP MUSCLE PAIN; Start 12/05/17 at 19:00 Al Hydroxide/Mg Hydroxide (Mylanta Plus Xs) 15 ml PRN AFTMEALHC PRN PO DYSPEPSIA; Start 12/05/17 at 19:00 Magnesium Hydroxide (Milk Of Magnesia) 2,400 mg PRN QHS PRN PO CONSTIPATION Last administered on 12/06/17at 13:06; Start 12/05/17 at 19:00 Sertraline HCl (Zoloft) 50 mg DAILYWBKFT PO Last administered on 12/07/17at 07: 49; Start 12/06/17 at 08:00 Atorvastatin Calcium (Lipitor) 20 mg HS PO Last administered on 12/07/17at 20:12 ; Start 12/05/17 at 21:00 Bisacodyl (Dulcolax Tab) 5 mg PRN DAILY PRN PO CONSTIPATION; Start 12/05/17 at 19:45 Cinacalcet (Sensipar) 60 mg DAILY PO Last administered on 12/07/17 07:51; Start 12/06/17 at 09:00 Clonidine HCl (Catapres) 0.1 mg BID PO Last administered on 12/07/17at 20:12; Start 12/05/17 at 21:00 Cyanocobalamin (Vitamin B-12) 1,000 mcg DAILY PO Last administered on at 07:51; Start 12/06/17 at 09:00 Gabapentin (Neurontin) 800 mg BID PO Last administered on 12/07/17at 20:13; Start 12/05/17 at 21:00 Sodium Biphosphate/ Sodium Phosphate (Fleet Adult) 133 ml PRN DAILY PRN RC CONSTIPATION; Start 12/05/17 at 19:45 Ondansetron HCl (Zofran Odt) 4 mg PRN Q8HRS PRN PO NAUSEA/VOMITING; Start 12/05 at 20:15 Oxycodone/ Acetaminophen (Percocet 5/325) 1 tab PRN Q4HRS PRN PO PAIN; Start at 19:45 Alendronate Sodium (Fosamax) 70 mg WEEKLYAC PO ; Start 12/09/17 at 07:00 Amlodipine Besylate (Norvasc) 5 mg DAILY PO Last administered on 12/07/17at 07: 49; Start 12/06/17 at 09:00 Bisacodyl (Dulcolax Supp) 10 mg PRN DAILY PRN [place] CONSTIPATION; Start 12/05/17 at 20:15 Bisacodyl (Dulcolax Supp) 10 mg QMWF DC Last administered on 12/06/17at 16:00; Start 12/06/17 at 16:00 Cefpodoxime Proxetil (Vantin) 100 mg DAILY PO Last administered on 12/07/17at 07 :51; Start 12/06/17 at 09:00; Stop 12/12/17 at 08:59 Vitamin D (Vitamin D3) 5,000 unit DAILY PO Last administered on 12/07/17at 07:48 ; Start 12/06/17 at 09:00 Docusate Sodium (Colace) 200 mg DAILY PO Last administered on 12/07/17at 07:51; Start 12/06/17 at 09:00 Dronabinol (Marinol) 5 mg BIDACLD PO Last administered on 12/07/17 18:06; Start 12/06/17 at 11:30 Fenofibrate (Tricor) 145 mg DAILY PO Last administered on 12/07/17at 07:51; Start 12/06/17 at 09:00 Non-Formulary Medication (Insulin Aspart (Novolog Flexpen)) Hold if FSBS <150 ... BIDBFRMEAL SQ ; Start 12/06/17 at 07:30; Stop 12/06/17 at 07:30; Status DC Insulin Human Lispro (HumaLOG) 5 units TIDWMEALS SQ Last administered on 18:07; Start 12/06/17 at 08:00 Insulin Glargine (Lantus) 10 units QHS SQ Last administered on 12/07/17at 20:15 ; Start 12/05/17 at 21:00 Levothyroxine Sodium (Synthroid) 25 mcg DAILY07 PO Last administered on at 06:17; Start 12/06/17 at 07:00 Non-Formulary Medication (Menthol/Camphor (Sarna Anti-Itch Lotion)) 1 tia BID TP ; Start 12/05/17 at 21:00; Stop 12/05/17 at 21:00; Status DC Insulin Human Lispro (HumaLOG) 0-5 UNITS BIDWMEALS SQ Last administered on 12/07at 18:09; Start 12/06/17 at 08:00 Lactobacillus Rhamnosus (Culturelle) 1 cap BID PO Last administered on at 20:13; Start 12/05/17 at 21:00 Active Scripts Active Reported Zoloft (Sertraline Hcl) 50 Mg Tablet 50 Mg PO DAILY Bengay (Menthol) 113 Gm Gel..gram. 1 Tia TP PRN QID PRN Milk Of Magnesia (Magnesium Hydroxide) 2,400 Mg/10 Ml Oral.susp 2,400 Mg PO PRN QHS PRN Maalox Maximum Strength Susp (Mag Hydrox/Al Hydrox/Simeth) 355 Ml Oral.susp 15 Ml PO PRN AFTMEALHC PRN Acidophilus (Lactobacillus Acidophilus) 1 Each Capsule 1 Each PO BID 10 Days Bisacodyl 5 Mg Tablet.dr 5 Mg PO PRN DAILY PRN Tylenol (Acetaminophen) 325 Mg Tablet 650 Mg PO PRN Q4HRS PRN Cefpodoxime Proxetil 100 Mg Tablet 100 Mg PO DAILY X7 DAYS Sarna Anti-Itch Lotion (Menthol/Camphor) 222 Ml Lotion 1 Tia TP BID Percocet 5-325 Mg Tablet (Oxycodone Hcl/Acetaminophen) 1 Each Tablet 1 Each PO PRN Q4HRS PRN Sensipar (Cinacalcet Hcl) 30 Mg Tablet 60 Mg PO DAILY Fenofibrate 160 Mg Tablet 1 Tab PO DAILY Amlodipine Besylate 5 Mg Tablet 5 Mg PO DAILY Vitamin D3 (Cholecalciferol (Vitamin D3)) 5,000 Unit Tablet 1 Tab PO DAILY Levemir Flextouch (Insulin Detemir) 100 Unit/1 Ml Insuln.pen 10 Unit SQ HS Novolog Flexpen (Insulin Aspart) 100 Unit/1 Ml Insuln.pen 0-6 Unit SQ BIDBFRMEAL SLIDING SCALE INSULIN *HOLD IF FSBS <150 201-250 = 2U 251-300 = 3U 301-350 = 4U 351-400 = 6U Bisacodyl 10 Mg Supp.rect 10 Mg RC PRN DAILY PRN Zofran Odt (Ondansetron) 4 Mg Tab.rapdis 1 Tab SL Q8HRS PRN Novolog Flexpen (Insulin Aspart) 100 Unit/1 Ml Insuln.pen 5 Unit SQ TIDWMEALS Neurontin (Gabapentin) 400 Mg Capsule 800 Mg PO BID Dronabinol 5 Mg Capsule 5 Mg PO BID Levothyroxine Sodium 25 Mcg Tablet 25 Mcg PO DAILYAC Fosamax (Alendronate Sodium) 70 Mg Tablet 1 Tab PO QM Fleet Enema (Na Phos,M-B/Na Phos,Di-Ba) 133 Ml Enema 1 Each RC DAILY PRN Colace (Docusate Sodium) 100 Mg Capsule 200 Mg PO DAILY Clonidine Hcl 0.1 Mg Tablet 0.1 Mg PO BID Bisacodyl 10 Mg Supp.rect 10 Mg RC QMWF Bisacodyl 5 Mg Tablet.dr 5 Mg PO PRN DAILY PRN B-12 (Cyanocobalamin (Vitamin B-12)) 1,000 Mcg Tablet 1,000 Mcg PO DAILY Atorvastatin Calcium 20 Mg Tablet 1 Tab PO HS I have reviewed the current psychotropics carefully including drug interactions. Risk benefit ratio favors no change other than as noted in my dictated progress note. Diagnosis: Problems: (1) Anxiety disorder (2) Impulse control disorder (3) Major depression MICAH MCNAIR MD Dec 07, 2017 22:54
[2017-12-08] MEDS: LEVOTHYROXINE 25 MCG TABLET. PO SCH (06:00)
[2017-12-08 06:44] VITALS: BP 116/73
[2017-12-08] MEDS: cloNIDine HCL 0.1 MG TABLET PO SCH ×2 (07:39→21:13)
[2017-12-08] MEDS: CEFPODOXIME PROXETIL 100 MG TABLET PO SCH (07:39)
[2017-12-08] MEDS: amLODIPine BESYLATE 5 MG TABLET PO SCH (07:39)
[2017-12-08] MEDS: INSULIN LISPRO 300 UNITS/3 ML INSULN.PEN. SQ SCH ×5 (07:40→17:00)
[2017-12-08] MEDS: GABAPENTIN 400 MG CAPSULE. PO SCH ×2 (07:40→21:14)
[2017-12-08] MEDS: CINACALCET HCL 30 MG TABLET PO SCH (07:40)
[2017-12-08] MEDS: CHOLECALCIFEROL (VITAMIN D3) 1,000 UNIT TABLET PO SCH (07:40)
[2017-12-08] MEDS: DOCUSATE SODIUM 100 MG CAPSULE PO SCH (07:40)
[2017-12-08] MEDS: LACTOBACILLUS RHAMNOSUS GG 1 CAPSULE. PO SCH ×2 (07:40→21:14)
[2017-12-08] MEDS: FENOFIBRATE NANOCRYSTALLIZED 145 MG TABLET PO SCH (07:40)
[2017-12-08] MEDS: SERTRALINE 50 MG TABLET. PO SCH (07:40)
[2017-12-08] MEDS: CYANOCOBALAMIN (VITAMIN B-12) 1,000 MCG TABLET. PO SCH (07:40)
[2017-12-08] MEDS: DRONABINOL 2.5 MG CAPSULE PO SCH ×2 (13:41→18:00)
[2017-12-08 16:23] VITALS: BP 121/72
--- NOTE | 2017-12-08 21:03 | PDOC ---
Exam Note: Chad Note: Please also refer to the separate dictated note~for this date of service dictated separately.~Patient seen individually. Discussed the patient with Nursing staff reviewed the chart.~Reviewed interim history and current functioning. Reviewed vital signs,~Labs/ Radiology~and current medications noted below. Continue current treatment with the changes noted in the dictated addendum note Assessment: Vital Signs: Vital Signs Date Time Temp Pulse Resp B/P (MAP) Pulse Ox O2 Delivery O2 Flow Rate FiO2 12/08/17 16:23 98.1 75 20 121/72 (88) 95 I&O Intake and Output 12/08/17 07:00 Intake Total 1316 ml Output Total 800 ml Balance 516 ml Intake Oral 1316 ml Output Urine Total 800 ml # Voids 2 Labs: Laboratory Tests Test 12/08/17 07:15 12/08/17 11:34 12/08/17 16:30 12/08/17 19:35 Glucose (Fingerstick) 139 mg/dL (70-99) H 259 mg/dL (70-99) H 196 mg/dL (70-99) H 176 mg/dL (70-99) H Current Medications: Meds: Current Medications Acetaminophen (Tylenol) 650 mg PRN Q6HRS PRN PO PAIN / TEMP; Start 12/05/17 at 19:00 Multi-Ingredient Ointment (Analgesic [place]) 1 tia PRN QID PRN TP MUSCLE PAIN; Start 12/05/17 at 19:00 Al Hydroxide/Mg Hydroxide (Mylanta Plus Xs) 15 ml PRN AFTMEALHC PRN PO DYSPEPSIA; Start 12/05/17 at 19:00 Magnesium Hydroxide (Milk Of Magnesia) 2,400 mg PRN QHS PRN PO CONSTIPATION Last administered on 12/06/17at 13:06; Start 12/05/17 at 19:00 Sertraline HCl (Zoloft) 50 mg DAILYWBKFT PO Last administered on 12/08/17at 07: 40; Start 12/06/17 at 08:00 Atorvastatin Calcium (Lipitor) 20 mg HS PO Last administered on 12/07/17at 20:12 ; Start 12/05/17 at 21:00 Bisacodyl (Dulcolax Tab) 5 mg PRN DAILY PRN PO CONSTIPATION; Start 12/05/17 at 19:45 Cinacalcet (Sensipar) 60 mg DAILY PO Last administered on 12/08/17 07:40; Start 12/06/17 at 09:00 Clonidine HCl (Catapres) 0.1 mg BID PO Last administered on 12/08/17 07:39; Start 12/05/17 at 21:00 Cyanocobalamin (Vitamin B-12) 1,000 mcg DAILY PO Last administered on 07:40; Start 12/06/17 at 09:00 Gabapentin (Neurontin) 800 mg BID PO Last administered on 12/08/17 07:40; Start 12/05/17 at 21:00 Sodium Biphosphate/ Sodium Phosphate (Fleet Adult) 133 ml PRN DAILY PRN RC CONSTIPATION; Start 12/05/17 at 19:45 Ondansetron HCl (Zofran Odt) 4 mg PRN Q8HRS PRN PO NAUSEA/VOMITING; Start 12/05 at 20:15 Oxycodone/ Acetaminophen (Percocet 5/325) 1 tab PRN Q4HRS PRN PO PAIN; Start at 19:45 Alendronate Sodium (Fosamax) 70 mg WEEKLYAC PO ; Start 12/09/17 at 07:00 Amlodipine Besylate (Norvasc) 5 mg DAILY PO Last administered on 12/08/17at 07: 39; Start 12/06/17 at 09:00 Bisacodyl (Dulcolax Supp) 10 mg PRN DAILY PRN [place] CONSTIPATION; Start 12/05/17 at 20:15 Bisacodyl (Dulcolax Supp) 10 mg QMWF [place] Last administered on 12/06/17at 16:00; Start 12/06/17 at 16:00 Cefpodoxime Proxetil (Vantin) 100 mg DAILY PO Last administered on 12/08/17at 07 :39; Start 12/06/17 at 09:00; Stop 12/12/17 at 08:59 Vitamin D (Vitamin D3) 5,000 unit DAILY PO Last administered on 12/08/17 07:40 ; Start 12/06/17 at 09:00 Docusate Sodium (Colace) 200 mg DAILY PO Last administered on 12/08/17at 07:40; Start 12/06/17 at 09:00 Dronabinol (Marinol) 5 mg BIDACLD PO Last administered on 12/07/17 18:06; Start 12/06/17 at 11:30; Stop 12/08/17 at 07:11; Status DC Fenofibrate (Tricor) 145 mg DAILY PO Last administered on 12/08/17at 07:40; Start 12/06/17 at 09:00 Non-Formulary Medication (Insulin Aspart (Novolog Flexpen)) Hold if FSBS <150 ... BIDBFRMEAL SQ ; Start 12/06/17 at 07:30; Stop 12/06/17 at 07:30; Status DC Insulin Human Lispro (HumaLOG) 5 units TIDWMEALS SQ Last administered on at 13:43; Start 12/06/17 at 08:00 Insulin Glargine (Lantus) 10 units QHS SQ Last administered on 12/07/17at 20:15 ; Start 12/05/17 at 21:00 Levothyroxine Sodium (Synthroid) 25 mcg DAILY07 PO Last administered on at 06:00; Start 12/06/17 at 07:00 Non-Formulary Medication (Menthol/Camphor (Sarna Anti-Itch Lotion)) 1 tia BID TP ; Start 12/05/17 at 21:00; Stop 12/05/17 at 21:00; Status DC Insulin Human Lispro (HumaLOG) 0-5 UNITS BIDWMEALS SQ Last administered on 12/07at 18:09; Start 12/06/17 at 08:00 Lactobacillus Rhamnosus (Culturelle) 1 cap BID PO Last administered on at 07:40; Start 12/05/17 at 21:00 Dronabinol (Marinol) 2.5 mg BIDACLD PO Last administered on 12/08/17at 18:00; Start 12/08/17 at 11:30 Active Scripts Active Reported Zoloft (Sertraline Hcl) 50 Mg Tablet 50 Mg PO DAILY Bengay (Menthol) 113 Gm Gel..gram. 1 Tia TP PRN QID PRN Milk Of Magnesia (Magnesium Hydroxide) 2,400 Mg/10 Ml Oral.susp 2,400 Mg PO PRN QHS PRN Maalox Maximum Strength Susp (Mag Hydrox/Al Hydrox/Simeth) 355 Ml Oral.susp 15 Ml PO PRN AFTMEALHC PRN Acidophilus (Lactobacillus Acidophilus) 1 Each Capsule 1 Each PO BID 10 Days Bisacodyl 5 Mg Tablet.dr 5 Mg PO PRN DAILY PRN Tylenol (Acetaminophen) 325 Mg Tablet 650 Mg PO PRN Q4HRS PRN Cefpodoxime Proxetil 100 Mg Tablet 100 Mg PO DAILY X7 DAYS Sarna Anti-Itch Lotion (Menthol/Camphor) 222 Ml Lotion 1 Tia TP BID Percocet 5-325 Mg Tablet (Oxycodone Hcl/Acetaminophen) 1 Each Tablet 1 Each PO PRN Q4HRS PRN Sensipar (Cinacalcet Hcl) 30 Mg Tablet 60 Mg PO DAILY Fenofibrate 160 Mg Tablet 1 Tab PO DAILY Amlodipine Besylate 5 Mg Tablet 5 Mg PO DAILY Vitamin D3 (Cholecalciferol (Vitamin D3)) 5,000 Unit Tablet 1 Tab PO DAILY Levemir Flextouch (Insulin Detemir) 100 Unit/1 Ml Insuln.pen 10 Unit SQ HS Novolog Flexpen (Insulin Aspart) 100 Unit/1 Ml Insuln.pen 0-6 Unit SQ BIDBFRMEAL SLIDING SCALE INSULIN *HOLD IF FSBS <150 201-250 = 2U 251-300 = 3U 301-350 = 4U 351-400 = 6U Bisacodyl 10 Mg Supp.rect 10 Mg RC PRN DAILY PRN Zofran Odt (Ondansetron) 4 Mg Tab.rapdis 1 Tab SL Q8HRS PRN Novolog Flexpen (Insulin Aspart) 100 Unit/1 Ml Insuln.pen 5 Unit SQ TIDWMEALS Neurontin (Gabapentin) 400 Mg Capsule 800 Mg PO BID Dronabinol 5 Mg Capsule 5 Mg PO BID Levothyroxine Sodium 25 Mcg Tablet 25 Mcg PO DAILYAC Fosamax (Alendronate Sodium) 70 Mg Tablet 1 Tab PO QM Fleet Enema (Na Phos,M-B/Na Phos,Di-Ba) 133 Ml Enema 1 Each RC DAILY PRN Colace (Docusate Sodium) 100 Mg Capsule 200 Mg PO DAILY Clonidine Hcl 0.1 Mg Tablet 0.1 Mg PO BID Bisacodyl 10 Mg Supp.rect 10 Mg RC QMWF Bisacodyl 5 Mg Tablet.dr 5 Mg PO PRN DAILY PRN B-12 (Cyanocobalamin (Vitamin B-12)) 1,000 Mcg Tablet 1,000 Mcg PO DAILY Atorvastatin Calcium 20 Mg Tablet 1 Tab PO HS I have reviewed the current psychotropics carefully including drug interactions. Risk benefit ratio favors no change other than as noted in my dictated progress note. Diagnosis: Problems: (1) Anxiety disorder (2) Urinary tract infection (3) Impulse control disorder (4) Major depression (5) [id number] kidney injury MICAH MCNAIR MD Dec 08, 2017 21:03
[2017-12-08] MEDS: ATORVASTATIN CALCIUM 20 MG TABLET PO SCH (21:14)
[2017-12-08] MEDS: INSULIN GLARGINE 300 UNITS/3 ML INSULN.PEN. SQ SCH (21:17)
--- NOTE | 2017-12-08 23:07 | PN ---
DATE: 12/07/2017 This is a late entry for 12/07/2017 covers elements not covered in my initial note. SUBJECTIVE: I met with the patient in the evening. The patient is compliant with his medications. Complains of being sick to his stomach. Blood sugar is 170. REVIEW OF SYSTEMS: Ambulation impaired. No CV, , pulmonary, eye system symptoms on review other than the GI symptoms. MENTAL STATUS EXAM: Reasonably oriented. Speech coherent, abstraction fair, computation impaired, language function intact. Mood and affect somewhat anxious, labile, but improved. LABORATORY DATA: Reviewed. IMPRESSION: Unchanged from initial note. PLAN: Nursing staff wonder whether Marinol could be contributing to GI symptoms. We will reduce it from 5 mg twice a day down to 2.5 mg twice a day. Continue rest unchanged including Zoloft 50 mg a day. MAN Neo MCNAIR MD DR: MARINA/lj JOB#: [id number] / [id number]
--- NOTE | 2017-12-08 23:41 | PN ---
DATE: 12/08/2017 This note covers elements not covered in my initial note of 12/08/2017. SUBJECTIVE: I met with the patient in the evening in his room. He slept 6 hours previous evening. Complains of some tiredness, irritable at times. REVIEW OF SYSTEMS: No CV, , pulmonary, eye system symptoms on review. Reliability varies. MENTAL STATUS EXAM: Oriented to himself and situation. Speech coherent. Abstraction fair, computation impaired, lability is improved. Mood and affect showing improvement. IMPRESSION: Unchanged from initial note. PLAN: Continue psychotropics from initial note. MAN NavinWoo MCNAIR MD DR: MARINA/lj JOB#: [id number] / [id number]
[2017-12-09] MEDS ORDERED: FENO145T30 PO (02:00)
[2017-12-09 06:14] VITALS: BP 119/68
[2017-12-09] MEDS ORDERED: ALENDRONATE SODIUM 35 MG TABLET PO SCH (07:00)
[2017-12-09] MEDS: LEVOTHYROXINE 25 MCG TABLET. PO SCH (07:45)
[2017-12-09] MEDS: CEFPODOXIME PROXETIL 100 MG TABLET PO SCH (08:00)
[2017-12-09] MEDS: CHOLECALCIFEROL (VITAMIN D3) 1,000 UNIT TABLET PO SCH (08:00)
[2017-12-09] MEDS: DOCUSATE SODIUM 100 MG CAPSULE PO SCH (08:01)
[2017-12-09] MEDS: GABAPENTIN 400 MG CAPSULE. PO SCH (08:01)
[2017-12-09] MEDS: cloNIDine HCL 0.1 MG TABLET PO SCH (08:01)
[2017-12-09 08:02] VITALS: BP 119/68
[2017-12-09] MEDS: CYANOCOBALAMIN (VITAMIN B-12) 1,000 MCG TABLET. PO SCH (08:02)
[2017-12-09] MEDS: amLODIPine BESYLATE 5 MG TABLET PO SCH (08:02)
[2017-12-09] MEDS: SERTRALINE 50 MG TABLET. PO SCH (08:02)
[2017-12-09] MEDS: FENOFIBRATE NANOCRYSTALLIZED 145 MG TABLET PO SCH (08:02)
[2017-12-09] MEDS: CINACALCET HCL 30 MG TABLET PO SCH (08:03)
[2017-12-09] MEDS: INSULIN LISPRO 300 UNITS/3 ML INSULN.PEN. SQ SCH ×3 (08:06→13:20)
[2017-12-09] MEDS: DRONABINOL 2.5 MG CAPSULE PO SCH (13:16)
--- NOTE | 2017-12-10 18:02 | DS ---
DATE OF DISCHARGE: 12/09/2017 DISCHARGE SUMMARY/PSYCHIATRIC PROGRESS NOTE This late entry 12/09/2017 covers elements not covered in my initial note. REASON FOR ADMISSION: Please refer to the admission history for details. Briefly, the patient is a 62-year-old male initially referred to us from [facility] on account of worsening anger, aggression, refusing care, is being verbally abusive to staff, urinating on the floor. He was presented to the [facility] Emergency Room. He was also depressed and disrobing himself. UA was positive and he was admitted to the medical/surgical floor per Dr. Denson to address this and then transferred to us. SIGNIFICANT FINDINGS AND CLINICAL COURSE: Following admission, I met with the patient daily individually from a psychiatric standpoint, medical followup per Dr. Denson/Dr Michael. He was noted to be depressed, withdrawn, irritable, anxious. He was started on Zoloft increasing to 50 mg a day and he is on Marinol 2.5 mg b.i.d. to help stimulate his appetite, remained on gabapentin 800 mg b.i.d. Gradually mood appeared to improve, consideration was given to adding Buspar, but not found necessary prior to discharge. REVIEW OF SYSTEMS: Prior to discharge, 12/09/2017, ambulation impaired consequent to his ALS. No CV, , pulmonary, eye system symptoms on review. MENTAL STATUS EXAM: Reasonably oriented. Speech coherent, has some latency. Abstraction fair, computation impaired, language function intact, attention span short. Mood and affect improved. As noted in my initial evaluation, the patient had a fairly significant past history of methamphetamine abuse and used to deal in this as well. CONDITION AT DISCHARGE: Improved. FINAL DIAGNOSES: Major depressive disorder, recurrent, in partial remission; impulse control disorder, unspecified; anxiety disorder, unspecified; past history of methamphetamine. Rest unchanged from admission including amyotrophic lateral sclerosis. DISCHARGE MEDICATIONS: Please refer to the MRAD. DISCHARGE INSTRUCTIONS: Outpatient psychiatric and medical followup at the [facility]. Time for discharge day management greater than 30 minutes. MAN Neo MCNAIR MD DR: MARINA/lj JOB#: [id number] / [id number]
== END 2017-12-09 15:00 | DRG 885 ==
LOC: GEROPSY 18:37
PROVIDERS: ADMIT Psychiatry & Neurology Psychiatry; ATTEND Psychiatry & Neurology Psychiatry
DX: F33.9 Major depressive disorder, recurrent, unspecified (principal); G12.21 Amyotrophic lateral sclerosis; N17.9 Acute kidney failure, unspecified; N39.0 Urinary tract infection, site not specified; D63.1 Anemia in chronic kidney disease; E11.22 Type 2 diabetes mellitus with diabetic chronic kidney disease; E11.40 Type 2 diabetes mellitus with diabetic neuropathy, unspecified; F15.10 Other stimulant abuse, uncomplicated; F41.9 Anxiety disorder, unspecified; F63.9 Impulse disorder, unspecified; I12.9 Hypertensive chronic kidney disease with stage 1 through stage 4 chronic kidney disease, or unspecified chronic kidney disease; K59.00 Constipation, unspecified; N18.9 Chronic kidney disease, unspecified; Z79.899 Other long term (current) drug therapy; Z87.891 Personal history of nicotine dependence
CPT/HCPCS: 36415; 70450; 71045; 72125; 80048; 80061; 80307; 81001; 82306; 82553; 82607; 82947; 83036; 83540; 83550; 83735; 83880; 84436; 84443; 84480; 84484; 85007; 85025; 85610; 85651; 85730; 86592; 87641; 93005; J1815; Q0167; G0479